=== PATIENT | male | born 1940 | race African-American/Black ===

== ENCOUNTER 2018-05-10 09:02 | Inpatient (IN) | payer MEDICARE ==
[2018-05-10] MEDS ORDERED: ASPIRIN PR ONE (09:22)
[2018-05-10 09:33] LABS: Basophils # (Auto) 0.1 K/mm3 (0.0-0.1); Basophils % (Auto) 0.9 % (0.0-1.8); Eosinophils # (Auto) 0.2 K/mm3 (0.0-0.4); Hematocrit 45.6 % (35.5-45.6); Hemoglobin 15.3 gm/dl (11.8-15.2); Lymphocytes # (Auto) 2.7 K/mm3 (1.2-5.4); Mean Corpuscular HGB Conc 34 % (32-34); Mean Corpuscular Hemoglobin 29 pg (28-32); Mean Corpuscular Volume 86 fl (84-94); Monocytes # (Auto) 0.6 K/mm3 (0.0-0.8); Monocytes % (Auto) 8.7 % (0.0-7.3); Platelet Count 335 K/mm3 (140-440); Red Cell Distribution Width 14.2 % (13.2-15.2)
--- NOTE | 2018-05-10 09:40 | Emergency Department Report ---
ED Chest Pain HPI - General Chief Complaint: Chest Pain Stated Complaint: CHEST PAIN Time Seen by Provider: 05/10/18 09:22 Source: patient, EMS Mode of arrival: Stretcher Limitations: Physical Limitation - History of Present Illness Initial Comments: Patient is 77 years old male with history of hypertension, diabetes and 2 a stroke. Patient presented to the ER complaining of left sided chest pain for the last 2 days. Patient describes pain as pressure radiating to the left upper extremity. Patient denied any shortness of breath, nausea or vomiting. No weakness numbness or tingling sensation. Patient denied any history of coronary artery disease before. MD Complaint: chest pain -: days(s) Onset: during rest Pain Location: left chest Pain Radiation: LUE Severity scale (0 -10): 4 Quality: pressure Consistency: intermittent - Related Data Previous Rx's Medication Instructions Recorded Last Taken Type Metoclopramide [Reglan TAB] 10 mg PO Q6H PRN tablet 09/26/17 Unknown Rx Pitavastatin Calcium [LiVALO] 2 mg PO DAILY #30 tablet 09/26/17 Unknown Rx Acetaminophen [Acetaminophen TAB] 650 mg PO Q4H PRN tablet 10/28/17 Unknown Rx Bisacodyl [Dulcolax suppos] 10 mg TX QDAY PRN supp.rect 10/28/17 Unknown Rx Magnesium Hydroxide [Milk of 30 ml PO Q4H PRN oral.liqd 10/28/17 Unknown Rx Magnesia] Metoprolol [Lopressor TAB] 37.5 mg PO BID #60 tablet 10/28/17 Unknown Rx Pantoprazole [Protonix TAB] 40 mg PO DAILY #30 tablet 10/28/17 Unknown Rx Tamsulosin [Flomax] 0.4 mg PO QDAY #30 capsule 10/28/17 Unknown Rx Aspirin EC [Aspirin Enteric Coated 81 mg PO QDAY #30 tablet.dr 01/08/18 Unknown Rx TAB] Insulin NPH/Regular [NovoLIN 70/30] 10 unit SUB-Q BIDDIAB #7 units 01/08/18 Unknown Rx Levothyroxine [Synthroid] 75 mcg PO DAILY@0600 #30 tablet 01/08/18 Unknown Rx Levothyroxine [Synthroid] 100 mcg PO DAILY@0600 #30 tablet 01/08/18 Unknown Rx Temazepam [Restoril] 15 mg PO QHS PRN #30 capsule 01/08/18 Unknown Rx levoFLOXacin [Levaquin TAB] 500 mg PO Q24HR #5 tablet 01/08/18 Unknown Rx metroNIDAZOLE [Flagyl TAB] 500 mg PO Q8HR #15 tablet 01/08/18 Unknown Rx Allergies Allergy/AdvReac Type Severity Reaction Status Date / Time codeine Allergy Itching Verified 09/20/17 14:14 penicillin Allergy Rash Verified 09/20/17 14:14 aspirin AdvReac Unknown Verified 09/20/17 14:14 Heart Score - HEART Score History: Moderately suspicious EKG: Non-specific Age: > 65 Risk factors: > 3 risk factors or hx of atherosclerotic disease Troponin: < normal limit HEART Score: 6 - Critical Actions Critical Actions: 4-6 pts:12-16.6% risk of adverse cardiac event. Should be admitted ED Review of Systems ROS: Stated complaint: CHEST PAIN Other details as noted in HPI Comment: All other systems reviewed and negative Constitutional: denies: chills, fever Respiratory: denies: cough, orthopnea, shortness of breath, SOB with exertion, SOB at rest Cardiovascular: chest pain. denies: palpitations, dyspnea on exertion Gastrointestinal: denies: abdominal pain, nausea, vomiting, diarrhea, constipation, hematemesis, melena, hematochezia Neurological: denies: headache, weakness, numbness, paresthesias, confusion, abnormal gait ED Past Medical Hx - Past Medical History Hx Hypertension: Yes Hx CVA: Yes (L sided deficits) Hx Diabetes: Yes Hx Asthma: Yes Hx HIV: No Additional medical history: Graves dx. gastric ulcers - Surgical History Additional Surgical History: knee OR bilat. thyroid OR - Social History Smoking Status: Former Smoker Substance Use Type: None - Medications Home Medications: Home Medications Medication Instructions Recorded Confirmed Last Taken Type Metoclopramide [Reglan TAB] 10 mg PO Q6H PRN tablet 09/26/17 01/06/18 Unknown Rx Pitavastatin Calcium [LiVALO] 2 mg PO DAILY #30 tablet 09/26/17 01/06/18 Unknown Rx Acetaminophen [Acetaminophen TAB] 650 mg PO Q4H PRN tablet 10/28/17 01/06/18 Unknown Rx Bisacodyl [Dulcolax suppos] 10 mg TX QDAY PRN supp.rect 10/28/17 01/06/18 Unknown Rx Magnesium Hydroxide [Milk of 30 ml PO Q4H PRN oral.liqd 10/28/17 01/06/18 Unknown Rx Magnesia] Metoprolol [Lopressor TAB] 37.5 mg PO BID #60 tablet 10/28/17 01/06/18 Unknown Rx Pantoprazole [Protonix TAB] 40 mg PO DAILY #30 tablet 10/28/17 01/06/18 Unknown Rx Tamsulosin [Flomax] 0.4 mg PO QDAY #30 capsule 10/28/17 01/06/18 Unknown Rx Aspirin EC [Aspirin Enteric Coated 81 mg PO QDAY #30 tablet.dr 01/08/18 Unknown Rx TAB] Insulin NPH/Regular [NovoLIN 70/30] 10 unit SUB-Q BIDDIAB #7 units 01/08/18 Unknown Rx Levothyroxine [Synthroid] 75 mcg PO DAILY@0600 #30 tablet 01/08/18 Unknown Rx Levothyroxine [Synthroid] 100 mcg PO DAILY@0600 #30 tablet 01/08/18 Unknown Rx Temazepam [Restoril] 15 mg PO QHS PRN #30 capsule 01/08/18 Unknown Rx levoFLOXacin [Levaquin TAB] 500 mg PO Q24HR #5 tablet 01/08/18 Unknown Rx metroNIDAZOLE [Flagyl TAB] 500 mg PO Q8HR #15 tablet 01/08/18 Unknown Rx ED Physical Exam - General Limitations: No Limitations, Physical Limitation General appearance: alert, in no apparent distress - Head Head exam: Present: atraumatic, normocephalic, normal inspection - Eye Eye exam: Present: normal appearance, PERRL - ENT ENT exam: Present: normal exam, normal orophraynx, mucous membranes moist - Neck Neck exam: Present: normal inspection, full ROM. Absent: tenderness, meningismus, lymphadenopathy, thyromegaly - Respiratory Respiratory exam: Present: normal lung sounds bilaterally. Absent: respiratory distress, wheezes, rales, rhonchi, stridor, chest wall tenderness, accessory muscle use, decreased breath sounds, prolonged expiratory - Cardiovascular Cardiovascular Exam: Present: regular rate, normal rhythm, normal heart sounds - GI/Abdominal GI/Abdominal exam: Present: soft, normal bowel sounds. Absent: distended, tenderness, guarding, rebound, rigid, organomegaly, mass, bruit, pulsatile mass , hernia - Extremities Exam Extremities exam: Present: normal inspection, full ROM, normal capillary refill. Absent: tenderness, pedal edema, joint swelling, calf tenderness - Back Exam Back exam: Present: normal inspection, full ROM. Absent: tenderness, CVA tenderness (R), CVA tenderness (L), muscle spasm, paraspinal tenderness, vertebral tenderness, rash noted - Neurological Exam Neurological exam: Present: alert, oriented X3, CN II-XII intact, normal gait, reflexes normal - Skin Skin exam: Present: warm, intact, normal color ED Course Vital Signs 05/10/18 09:13 Temperature 98.7 F Pulse Rate 65 Respiratory 14 Rate Blood Pressure 156/73 Blood Pressure 156/73 [Right] O2 Sat by Pulse 94 Oximetry - Reevaluation(s) Reevaluation #1: 05/10/18 11:17 * Patient family and from the nurse and that patient is having swelling. Patient examined by me there is no evidence of swelling and patient denied any difficulty breathing or swallowing. Patient is on lisinopril for years advised to stop the lisinopril to give the patient Solu-Medrol 125 and Benadryl 25 mg and Pepcid 20 mg. Patient will be admitted to telemetry ED Medical Decision Making - Lab Data Result diagrams: 05/10/18 09:28 05/10/18 09:28 - EKG Data -: EKG Interpreted by Me EKG shows normal: sinus rhythm Rate: normal - EKG Data Interpretation: no acute changes - Radiology Data Radiology results: report reviewed - Medical Decision Making I discussed the patient is , he agreed to admit the patient to medical service. Critical care attestation.: If time is entered above; I have spent that time in minutes in the direct care of this critically ill patient, excluding procedure time. ED Disposition Clinical Impression: Chest pain Disposition: OP ADMIT IP TO THIS HOSP Is pt being admited?: Yes Condition: Stable Instructions: Chest Pain (ED) Referrals: PRIMARY CARE, [Primary Care Provider] - 3-5 Days
[2018-05-10 09:46] LABS: BUN/Creatinine Ratio 14; Blood Urea Nitrogen 10 mg/dL (9-20); Hemolysis Index 17
--- NOTE | 2018-05-10 10:12 | XRay Report ---
AP CHEST: HISTORY: chest pain AP view of the chest demonstrates a normal mediastinal and cardiac contour with clear lungs and normal bony and soft tissue structures. IMPRESSION: Unremarkable AP chest. No change since 10/26/17.
--- NOTE | 2018-05-10 10:55 | History and Physical Report ---
History of Present Illness Date of examination: 05/10/18 Date of admission: 05/10/18 Chief complaint: Chest pain History of present illness: Patient is 77 years old male with history of hypertension, diabetes and 2 a stroke. Patient presented to the ER complaining of left sided chest pain for the last 2 days. Patient describes pain as pressure radiating to the left upper extremity. Patient denied any shortness of breath, nausea or vomiting. No weakness numbness or tingling sensation. Patient denied any history of coronary artery disease before. Past History Past Medical History: diabetes, GERD, hypertension Past Surgical History: thyroidectomy, total knee replacement Social history: single Family history: no significant family history (reviewed) Medications and Allergies Allergies Allergy/AdvReac Type Severity Reaction Status Date / Time codeine Allergy Itching Verified 09/20/17 14:14 penicillin Allergy Rash Verified 09/20/17 14:14 aspirin AdvReac Unknown Verified 09/20/17 14:14 Home Medications Medication Instructions Recorded Confirmed Last Taken Type Metoprolol [Lopressor TAB] 37.5 mg PO BID #60 tablet 10/28/17 05/10/18 05/10/18 Rx Ezetimibe [Zetia] 10 mg PO QDAY 05/10/18 05/10/18 Unknown History Levothyroxine Sodium [Synthroid] 175 mcg PO QDAY 05/10/18 05/10/18 Unknown History Lisinopril [Zestril] 40 mg PO QDAY 05/10/18 05/10/18 05/10/18 History Exam - Physical Exam Narrative exam: Hospitalist Physical exam: GENERAL: well-developed and well-nourished male lying on bed appeared to be in no discomfort. HEENT: Normocephalic. Atraumatic. No conjunctival congestion or icterus. Patient has moist mucous membranes. NECK: Supple. Trachea midline. CHEST/LUNGS: Clear to auscultated bilaterally, breathing nonlabored. No wheezes crackles or rhonchi. HEART/CARDIOVASCULAR: Regular in rate and rhythm. S1 and S2 positive. ABDOMEN: Abdomen is soft, LLQ tender. Patient has normal bowel sounds. SKIN: There is no rash. Warm and dry. NEURO: leftsided weakness. Follows command. MUSCULOSKELETAL: No joint effusion or tenderness. EXTRIMITY: No edema, no cyanosis or clubbing. PSYCH: Cooperative. - Constitutional Vitals: Temp Pulse Resp BP Pulse Ox 98.7 F 65 14 156/73 96 05/10/18 09:13 05/10/18 09:13 05/10/18 09:13 05/10/18 09:13 05/10/18 09:13 Results - Labs CBC & Chem 7: 05/10/18 09:28 05/10/18 09:28 Labs: Abnormal lab results 05/10/18 05/10/18 05/10/18 Range/Units 09:28 09:28 09:28 RBC 5.30 H (3.65-5.03) M/mm3 Hgb 15.3 H (11.8-15.2) gm/dl Lymph % (Auto) 39.0 H (13.4-35.0) % [place] % (Auto) 8.7 H (0.0-7.3) % Sodium 136 L (137-145) mmol/L Chloride 97.9 L (98-107) mmol/L Creatinine 0.7 L (0.8-1.5) mg/dL Glucose 133 H (75-100) mg/dL Lipase 85 H (13-60) units/L Assessment and Plan /Chest pain, unstable angina? 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
[2018-05-10] MEDS ORDERED: SOLU-Medrol IV ONE (11:08)
[2018-05-10] MEDS ORDERED: PEPCID IV ONE (11:08)
[2018-05-10] MEDS ORDERED: BENADRYL IV ONE (11:08)
[2018-05-10] MEDS ORDERED: NITROSTAT SL ONE (11:18)
[2018-05-10] MEDS ORDERED: REGLAN PO PRN (12:00)
[2018-05-10] MEDS ORDERED: MORPHINE IV ONE (18:00)
[2018-05-10 22:23] LABS: Creatine Kinase MB < 1.0 ng/mL (0.0-4.0)
[2018-05-10] MEDS: LOPRESSOR PO SCH (22:26)
[2018-05-10] MEDS: RESTORIL PO PRN (22:29)
[2018-05-11] MEDS: SYNTHROID PO SCH (05:48)
[2018-05-11] MEDS ORDERED: SYNTHROID PO SCH (06:00)
[2018-05-11] MEDS: LOPRESSOR PO SCH ×2 (09:13→22:58)
[2018-05-11] MEDS: HALFPRIN EC PO SCH (09:14)
[2018-05-11] MEDS: FLOMAX PO SCH (09:14)
[2018-05-11] MEDS: PROTONIX PO SCH (09:14)
[2018-05-11] MEDS ORDERED: PITAVASTATIN CALCIUM 2 MG PO SCH (10:00)
--- NOTE | 2018-05-11 11:45 | Nuclear Medicine Report ---
Ventilation/perfusion lung scan: Elevated d-dimer/chest pain. The ventilation imaging is somewhat limited. There is a relatively unremarkable distribution of radionuclide on the initial images. Equilibrium images however are inadequate and there is no obvious retention on the delayed images. The perfusion images with multiple projections demonstrates a homogeneous and unremarkable distribution of radioactivity in both lungs. Impressions: Limited ventilation imaging with normal perfusion images. No pulmonary embolus suspected.
--- NOTE | 2018-05-11 13:08 | Progress Note ---
Assessment and Plan /Chest pain, unstable angina? 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 No pulmonary embolus suspected. Subjective Date of service: 05/11/18 Interval history: Pt seen and examined C/o intermittent chest pain Objective - Exam Narrative Exam: Hospitalist Physical exam: GENERAL: well-developed and well-nourished male lying on bed appeared to be in no discomfort. HEENT: Normocephalic. Atraumatic. No conjunctival congestion or icterus. Patient has moist mucous membranes. NECK: Supple. Trachea midline. CHEST/LUNGS: Clear to auscultated bilaterally, breathing nonlabored. No wheezes crackles or rhonchi. HEART/CARDIOVASCULAR: Regular in rate and rhythm. S1 and S2 positive. ABDOMEN: Abdomen is soft, LLQ tender. Patient has normal bowel sounds. SKIN: There is no rash. Warm and dry. NEURO: leftsided weakness. Follows command. MUSCULOSKELETAL: No joint effusion or tenderness. EXTRIMITY: No edema, no cyanosis or clubbing. PSYCH: Cooperative. - Constitutional Vitals: Vital Signs - 12hr 05/11/18 05/11/18 05/11/18 05:35 08:13 09:13 Temperature 97.5 F L Pulse Rate 72 80 80 Pulse Rate [ From Monitor] Respiratory 20 Rate Respiratory Rate [Hip] Blood Pressure 140/74 Blood Pressure 143/78 [Right] O2 Sat by Pulse 96 Oximetry 05/11/18 10:00 Temperature Pulse Rate Pulse Rate [ 90 From Monitor] Respiratory 20 Rate Respiratory 20 Rate [Hip] Blood Pressure Blood Pressure [Right] O2 Sat by Pulse Oximetry - Labs CBC & Chem 7: 05/10/18 09:28 05/10/18 09:28 Labs: Abnormal lab results 05/10/18 05/10/18 05/11/18 Range/Units 20:58 20:58 12:11 D-Dimer 379.9 H (0-234) ng/mlDDU POC Glucose 167 H (70-105) Total Creatine Kinase 36 L (55-170) units/L
[2018-05-11] MEDS: PERCOCET 5/325 PO PRN (15:16)
[2018-05-11] MEDS: PRAVACHOL PO SCH (22:59)
[2018-05-11] MEDS: RESTORIL PO PRN (23:47)
[2018-05-12] MEDS: SYNTHROID PO SCH (06:55)
[2018-05-12] MEDS: PROTONIX PO SCH (10:02)
[2018-05-12] MEDS: FLOMAX PO SCH (10:03)
[2018-05-12] MEDS: HALFPRIN EC PO SCH (10:03)
[2018-05-12] MEDS: LOPRESSOR PO SCH ×2 (10:04→21:35)
--- NOTE | 2018-05-12 15:13 | Progress Note ---
Assessment and Plan Assessment and plan: 77-year-old male with past medical history significant for hypertension, hypothyroidism, diabetes mellitus presented to the emergency department with complaints of chest pain. In the ED VQ scan was done and no probability for PE. Chest pain - Cardiac enzymes were negative - Couldn't do this today because of the VQ scan, will have stress test tomorrow Diabetes mellitus - Continue insulin Hypertension - Continue antihypertensives Hypothyroidism - Continue levothyroxine DVT prophylaxis - On heparin Disposition - Possibly tomorrow if stress test is negative. History Interval history: Patient was seen and evaluated this morning, patient said he didn't have any chest pain today. Hospitalist Physical - Physical exam Narrative exam: Not in cardiopulmonary distress. The patient appeared well nourished and normally developed. Vital signs as documented. Head exam is unremarkable. No scleral icterus . Neck is without jugular venous distension, thyromegaly, or carotid bruits. Lungs are clear to auscultation. Cardiac exam reveals regular rate and Rhythm. First and second heart sounds normal. No murmurs, rubs or gallops. Abdominal exam reveals normal bowel sounds, no masses, no organomegaly and no aortic enlargement. Extremities are nonedematous and both femoral and pedal pulses are normal. 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 No focal weakness. - Constitutional Vitals: Temp Pulse Resp BP Pulse Ox 98.1 F 78 20 164/80 96 05/12/18 05:01 05/12/18 10:04 05/12/18 10:00 05/12/18 10:04 05/12/18 10:00 Results - Labs CBC & Chem 7: 05/10/18 09:28 05/10/18 09:28 Labs: Laboratory Last Values WBC 7.0 K/mm3 (4.5-11.0) 05/10/18 09:28 RBC 5.30 M/mm3 (3.65-5.03) H 05/10/18 09:28 Hgb 15.3 gm/dl (11.8-15.2) H 05/10/18 09:28 Hct 45.6 % (35.5-45.6) 05/10/18 09:28 MCV 86 fl (84-94) 05/10/18 09:28 MCH 29 pg (28-32) 05/10/18 09:28 MCHC 34 % (32-34) 05/10/18 09:28 RDW 14.2 % (13.2-15.2) 05/10/18 09:28 Plt Count 335 K/mm3 (140-440) 05/10/18 09:28 Lymph % (Auto) 39.0 % (13.4-35.0) H 05/10/18 09:28 [place] % (Auto) 8.7 % (0.0-7.3) H 05/10/18 09:28 Eos % (Auto) 3.0 % (0.0-4.3) 05/10/18 09:28 Baso % (Auto) 0.9 % (0.0-1.8) 05/10/18 09:28 Lymph # 2.7 K/mm3 (1.2-5.4) 05/10/18 09:28 [place] # 0.6 K/mm3 (0.0-0.8) 05/10/18 09: Eos # 0.2 K/mm3 (0.0-0.4) 05/10/18 09:28 Baso # 0.1 K/mm3 (0.0-0.1) 05/10/18 09:28 Seg Neutrophils % 48.4 % (40.0-70.0) 05/10/18 09: Seg Neutrophils # 3.4 K/mm3 (1.8-7.7) 05/10/18 09:28 D-Dimer 379.9 ng/mlDDU (0-234) H 05/10/18 20:58 Sodium 136 mmol/L (137-145) L 05/10/18 09:28 Potassium 4.1 mmol/L (3.6-5.0) 05/10/18 09:28 Chloride 97.9 mmol/L (98-107) L 05/10/18 09:28 Carbon Dioxide 26 mmol/L (22-30) 05/10/18 09:28 Anion Gap 16 mmol/L 05/10/18 09:28 BUN 10 mg/dL (9-20) 05/10/18 09:28 Creatinine 0.7 mg/dL (0.8-1.5) L 05/10/18 09:28 Estimated GFR > 60 ml/min 05/10/18 09:28 BUN/Creatinine Ratio 14 % 05/10/18 09:28 Glucose 133 mg/dL (75-100) H 05/10/18 09:28 POC Glucose 211 (70-105) H 05/12/18 11:23 Calcium 9.0 mg/dL (8.4-10.2) 05/10/18 09:28 Total Creatine Kinase 36 units/L (55-170) L 05/10/18 20:58 CK-MB (CK-2) < 1.0 ng/mL (0.0-4.0) 05/10/18 20:58 CK-MB (CK-2) Rel Index 2.7 (0-4) 05/10/18 20:58 Troponin T < 0.010 ng/mL (0.00-0.029) 05/10/18 20:58 NT-Pro-B Natriuret Pep 89.52 pg/mL (0-900) 05/10/18 09:28 Lipase 21 units/L (13-60) 05/11/18 05:45
[2018-05-12] MEDS: RESTORIL PO PRN (21:34)
[2018-05-12] MEDS: PRAVACHOL PO SCH (21:34)
[2018-05-12] MEDS: HEPARIN SUB-Q SCH (21:37)
[2018-05-13] MEDS: SYNTHROID PO SCH (06:28)
[2018-05-13] MEDS ORDERED: LEXISCAN IV ONE ×2 (08:12→08:14)
[2018-05-13] MEDS: LOPRESSOR PO SCH ×2 (12:11→22:48)
[2018-05-13] MEDS: PROTONIX PO SCH (12:11)
[2018-05-13] MEDS: FLOMAX PO SCH (12:11)
[2018-05-13] MEDS: HALFPRIN EC PO SCH (12:12)
[2018-05-13] MEDS: HEPARIN SUB-Q SCH ×2 (12:12→22:48)
--- NOTE | 2018-05-13 13:22 | Treadmill Report ---
MYOCARDIAL PERFUSION IMAGING STUDY Resting images revealed homogeneous radioisotope activity throughout myocardium. There was slightly increased gut uptake noted. On post-Lexiscan images, again there was homogeneous radioisotope activity noted throughout the myocardium. There was a transient ischemic dilatation of 1.27. Ejection fraction was normal at 65% on gated stress scan. IMPRESSION: This test is negative for ischemia. There is no segmental motion abnormalities noted. Preserved ejection fraction. However, there was transient ischemic dilatation. The significance of which is not well known. It may be seen in triple vessel disease or could be normal variant. Clinical correlation and recommendation is suggested. JOB# [id number] MARLA/FRANCISCO
--- NOTE | 2018-05-13 13:49 | Event Note ---
Date: 05/13/18 Cardiac consult dictated. TID on MPI. Schedule for cardiac catheterization. DrK. [place].
--- NOTE | 2018-05-13 14:02 | Progress Note ---
Assessment and Plan Assessment and plan: 77-year-old male with past medical history significant for hypertension, hypothyroidism, diabetes mellitus presented to the emergency department with complaints of chest pain. In the ED VQ scan was done and no probability for PE. Chest pain - Cardiac enzymes were negative - Couldn't do this today because of the VQ scan - Stress test was done and showed transient ischemic dilation, given his chest pressure and stress test patient will have cardiac cath. - Cardiology consulted Diabetes mellitus - Continue insulin Hypertension - Continue antihypertensives Hypothyroidism - Continue levothyroxine DVT prophylaxis - On heparin Disposition - Possibly tomorrow if stress test is negative. History Interval history: Patient was seen and evaluated this morning, patient said he didn't have any chest pain today but said he has some chest pressure. Hospitalist Physical - Physical exam Narrative exam: Not in cardiopulmonary distress. The patient appeared well nourished and normally developed. Vital signs as documented. Head exam is unremarkable. No scleral icterus . Neck is without jugular venous distension, thyromegaly, or carotid bruits. Lungs are clear to auscultation. Cardiac exam reveals regular rate and Rhythm. First and second heart sounds normal. No murmurs, rubs or gallops. Abdominal exam reveals normal bowel sounds, no masses, no organomegaly and no aortic enlargement. Extremities are nonedematous and both femoral and pedal pulses are normal. 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 No focal weakness. - Constitutional Vitals: Temp Pulse Resp BP Pulse Ox 97.6 F 78 18 165/87 94 05/13/18 05:51 05/13/18 09:43 05/13/18 05:51 05/13/18 09:43 05/13/18 05:51 Results - Labs CBC & Chem 7: 05/10/18 09:28 05/10/18 09:28 Labs: Laboratory Last Values WBC 7.0 K/mm3 (4.5-11.0) 05/10/18 09:28 RBC 5.30 M/mm3 (3.65-5.03) H 05/10/18 09:28 Hgb 15.3 gm/dl (11.8-15.2) H 05/10/18 09:28 Hct 45.6 % (35.5-45.6) 05/10/18 09:28 MCV 86 fl (84-94) 05/10/18 09:28 MCH 29 pg (28-32) 05/10/18 09:28 MCHC 34 % (32-34) 05/10/18 09:28 RDW 14.2 % (13.2-15.2) 05/10/18 09:28 Plt Count 335 K/mm3 (140-440) 05/10/18 09:28 Lymph % (Auto) 39.0 % (13.4-35.0) H 05/10/18 09:28 [place] % (Auto) 8.7 % (0.0-7.3) H 05/10/18 09:28 Eos % (Auto) 3.0 % (0.0-4.3) 05/10/18 09: Baso % (Auto) 0.9 % (0.0-1.8) 05/10/18 09:28 Lymph # 2.7 K/mm3 (1.2-5.4) 05/10/18 09: [place] # 0.6 K/mm3 (0.0-0.8) 05/10/18 09:28 Eos # 0.2 K/mm3 (0.0-0.4) 05/10/18 09:28 Baso # 0.1 K/mm3 (0.0-0.1) 05/10/18 09:28 Seg Neutrophils % 48.4 % (40.0-70.0) 05/10/18 09: Seg Neutrophils # 3.4 K/mm3 (1.8-7.7) 05/10/18 09:28 D-Dimer 379.9 ng/mlDDU (0-234) H 05/10/18 20:58 Sodium 136 mmol/L (137-145) L 05/10/18 09:28 Potassium 4.1 mmol/L (3.6-5.0) 05/10/18 09:28 Chloride 97.9 mmol/L (98-107) L 05/10/18 09:28 Carbon Dioxide 26 mmol/L (22-30) 05/10/18 09:28 Anion Gap 16 mmol/L 05/10/18 09:28 BUN 10 mg/dL (9-20) 05/10/18 09:28 Creatinine 0.7 mg/dL (0.8-1.5) L 05/10/18 09:28 Estimated GFR > 60 ml/min 05/10/18 09:28 BUN/Creatinine Ratio 14 % 05/10/18 09:28 Glucose 133 mg/dL (75-100) H 05/10/18 09:28 POC Glucose 234 (70-105) H 05/13/18 11:40 Calcium 9.0 mg/dL (8.4-10.2) 05/10/18 09:28 Total Creatine Kinase 36 units/L (55-170) L 05/10/18 20:58 CK-MB (CK-2) < 1.0 ng/mL (0.0-4.0) 05/10/18 20:58 CK-MB (CK-2) Rel Index 2.7 (0-4) 05/10/18 20:58 Troponin T < 0.010 ng/mL (0.00-0.029) 05/10/18 20:58 NT-Pro-B Natriuret Pep 89.52 pg/mL (0-900) 05/10/18 09:28 Lipase 21 units/L (13-60) 05/11/18 05:45
[2018-05-13] MEDS: PERCOCET 5/325 PO PRN (18:27)
[2018-05-13] MEDS: PRAVACHOL PO SCH (22:48)
[2018-05-13] MEDS: RESTORIL PO PRN (22:48)
--- NOTE | 2018-05-13 22:57 | Consultation ---
REQUESTING PHYSICIAN: Kirill Bennett M.D. REASON FOR CONSULTATION: Abnormal stress test. HISTORY OF PRESENT ILLNESS: This 77-year-old patient has a history of diabetes mellitus since 1978 along with hypertension and hyperlipidemia. About 6 years ago, he was told to have a coronary artery angiogram at [facility], but this was not done because of insurance conflicts. The patient has a history of GI bleeding about 8 years ago, admitted to [facility], getting about 5 units of packed red blood cells, an endoscope and proton pump inhibitors. Since then, he has been told not to take aspirin. The patient was admitted in September with a left-sided stroke and again recurrence of the stroke in October. He was discharged home on statins, beta blockers, and Plavix, and not aspirin to the rehab center. He was there for about a month and he was discharged home without Plavix or aspirin. The patient came in with a precordial pressure type of pain without any radiation to the left side, but radiation to the right shoulder. It lasted half an hour each time. This has been going on for last 1 week. When he came in, his D-dimer was elevated and therefore he had a CT of the chest on Monday and that was on 05/12/2018, and this was negative. Therefore, he was scheduled to have myocardial perfusion imaging studies today, and that is on 05/13/2018. This revealed transient ischemic dilatation of 1.27 without any perfusion abnormalities. Because of risk factors and chest pain along with an abnormal stress test, the patient was given a choice of coronary arteriogram to find out any disease he has that needs treatment. SOCIAL HISTORY: The patient smoked 2-1/2 packs of cigarettes per day until 10 years ago. He is not . He has no children. MEDICATIONS: At home include Reglan 10 mg p.r.n., pitavastatin 2 mg once a day, metoprolol 37.5 mg twice a day, Protonix 40 mg once a day, Flomax 0.4 mg once a day, insulin, Synthroid 75 mcg. He had a subtotal thyroidectomy 20 years ago for hyperthyroidism. He takes another tablet of Synthroid 100 mcg, Restoril 50 mg at bedtime. ALLERGIES: CODEINE, PENICILLIN. ASPIRIN is listed as an allergy, but it is due to gastric ulcers and he was told not to take it. REVIEW OF SYSTEMS: As per the history of present illness. PHYSICAL EXAMINATION: VITAL SIGNS: BMI is 24.4, blood pressure 150/60, pulse 70 per minute. NECK: No bruits noted in the neck. No JVD elevation. HEART: PMI is not palpable. Heart sounds heard well. S4 is noted. No murmurs. LUNGS: Clear. ABDOMEN: Soft. Liver is not palpable. Bowel sounds are active. EXTREMITIES: No edema. Good pulses. He has evidence of left hemiparesis. DICTATION ENDS HERE. JOB# [id number] KR/NTS
[2018-05-14] MEDS: SYNTHROID PO SCH (05:21)
[2018-05-14 06:14] LABS: BUN/Creatinine Ratio 18; Blood Urea Nitrogen 14 mg/dL (9-20); Calcium 9.3 mg/dL (8.4-10.2); Hemolysis Index 30; INR 0.94 (0.87-1.13); Partial Thromboplastin Time 28.8 Sec. (24.2-36.6)
[2018-05-14] MEDS ORDERED: VERSED ONE (08:17)
[2018-05-14] MEDS ORDERED: HEPARIN/NS 5000 UNIT/500ML(CATH LAB) 1,000 ML IR ONE (08:17)
[2018-05-14] MEDS ORDERED: HEPARIN 10,000 UNITS/10 ML ONE (08:17)
[2018-05-14] MEDS ORDERED: XYLOCAINE 2% INFILTRATI ONE (08:18)
[2018-05-14] MEDS ORDERED: NITROGLYCERIN SYRINGE 0 ML ONE (08:18)
[2018-05-14] MEDS ORDERED: CALAN ONE (08:18)
[2018-05-14] MEDS ORDERED: SUBLIMAZE ONE (08:18)
[2018-05-14] MEDS ORDERED: BENADRYL IV NR (08:30)
[2018-05-14] MEDS ORDERED: HALFPRIN EC PO ONE (08:37)
[2018-05-14] MEDS ORDERED: NACL 0.9% 500 ML 500 ML ONE (08:40)
[2018-05-14] MEDS: HALFPRIN EC PO SCH ×2 (08:46→12:00)
[2018-05-14] MEDS ORDERED: SOLU-Medrol IV NR (09:00)
[2018-05-14] MEDS ORDERED: PEPCID IV NR (09:00)
[2018-05-14] MEDS: KCL 10MEQ/100ML 10 MEQ/100 ML BAG IV SCH ×4 (09:20→13:00)
--- NOTE | 2018-05-14 10:37 | Cardiac Catherization Report ---
INDICATION FOR PROCEDURE: A 77-year-old gentleman with history of diabetes mellitus, admitted with chest pain and Lexiscan nuclear imaging showed transient ischemic dilation with no perfusion abnormalities. Because of this the patient is scheduled for cardiac catheterization and definitive diagnosis. The patient is aware of the procedure, potential complications and alternatives of therapy available. DESCRIPTION OF PROCEDURE: The patient was brought to the catheterization laboratory in a fasting condition. Right wrist area and forearm thoroughly cleansed with Betadine solution. The patient was evaluated for moderate sedation and when he was felt appropriate he received IV Versed and fentanyl. Subsequently, using multipurpose catheter left ventriculogram was performed in MACIAS projection using hand injection. Subsequently, using the multipurpose catheter, left coronary angiograms were obtained in multiple views. Subsequently, JR4 catheter was used to obtain angiograms of the right coronary artery. At the end of the procedure, catheter and sheath were removed. It is to be noted the patient was monitored for moderate sedation throughout the procedure with EKG, hemodynamic monitoring and pulse oximetry. The patient's monitoring stopped at 9:41 a.m. The patient tolerated the procedure well. No untoward complications were noted. Hemostasis was achieved with radial band. Following findings were noted. HEMODYNAMICS: 1. Opening aortic pressure 148/66, left ventricular pressure 139/10. No gradient across the aortic valve. Estimated ejection fraction 65%. 2. Left ventriculogram done in MACIAS projection showed normal size left ventricle with normal contractility. End-diastolic and systolic volumes are normal. Mitral regurgitation could not be evaluated. 3. Right coronary artery is a nondominant artery arises normally from right coronary cusp, angiographically smooth and normal. 4. Left coronary artery arises normally from left coronary cusp. There is moderate to severe calcification noted in the left main, LAD area. Left main is very short, immediately dividing the LAD and circumflex branches. LAD has a very tight more than 95% lesion at the ostium. Distal LAD is filling fairly well; however, filling is not complete. Mid diagonal has a 70% smooth lesion. Circumflex artery dominant vessel shows 50-60% smooth lesion in the very distal OM branch. Otherwise, no significant disease. Collaterals none. FINAL IMPRESSION: 1.Normal sized left ventricle with normal contractility. 2.Calcified left main and LAD with severe ostial LAD lesion with moderate 70% mid diagonal lesion and distal OM has 50% smooth lesion. At this time, considering the above angiographic pictures along with severe calcification it was felt the patient would benefit from left internal mammary graft to the LAD robotically. We will discuss with cardiothoracic surgeon. We will arrange for the transfer. Discussed with the patient and family. They understand. No untoward complications were noted. JOB# [id number] KYLAH/NTS
--- NOTE | 2018-05-14 11:05 | Discharge Summary ---
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 In the ED VQ scan was done and low probability for PE. Chest pain - Cardiac enzymes were negative - Stress test was done and showed transient ischemic dilation, given his continued chest pressure and indeterminate stress test [facility] thiswas done which showed calcified left main and LAD with severe ostial LAD lesion. Pt transferred to [place] for further evaluation and management. Diabetes mellitus; treated with insulin Hypertension; continued his home medications Hypothyroidism, Continued levothyroxine Patient was transferred to [place], have discussed the finding and management plan with the patient and son who are in agreement with the plan. Cardiology arranged the transfer and patient transferred to [place]. Disposition: [id number]/[id number] [facility] IP Time spent for discharge: 34 minutes - Discharge Diagnoses (1) CAD (coronary artery disease) Status: Acute (2) Chest pain Status: Acute (3) Accelerated hypertension Status: Acute (4) History of CVA with residual deficit Status: Acute Core Measure Documentation - Palliative Care Palliative Care/ Comfort Measures: Not Applicable - Core Measures Any of the following diagnoses?: none (Patient has acute MT but patient transferred to another facility.), history only (stroke) Exam - Physical Exam Narrative exam: Not in cardiopulmonary distress. The patient appeared well nourished and normally developed. Vital signs as documented. Head exam is unremarkable. No scleral icterus . Neck is without jugular venous distension, thyromegaly, or carotid bruits. Lungs are clear to auscultation. Cardiac exam reveals regular rate and Rhythm. First and second heart sounds normal. No murmurs, rubs or gallops. Abdominal exam reveals normal bowel sounds, no masses, no organomegaly and no aortic enlargement. Extremities are nonedematous and both femoral and pedal pulses are normal. 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 No focal weakness. - Constitutional Vitals: Temp Pulse Resp BP Pulse Ox 97.9 F 66 18 137/71 93 05/14/18 04:58 05/14/18 04:58 05/14/18 04:58 05/14/18 04:58 05/14/18 04:58 Plan Activity: no restrictions Weight Bearing Status: Full Weight Bearing Diet: low cholesterol, low salt, diabetic Follow up with: PRIMARY CARE, [Primary Care Provider] - 7 Days
[2018-05-14] MEDS: FLOMAX PO SCH (11:59)
[2018-05-14] MEDS: HEPARIN SUB-Q SCH ×2 (12:01→22:29)
[2018-05-14] MEDS: LOPRESSOR PO SCH ×2 (12:01→22:29)
[2018-05-14] MEDS: PROTONIX PO SCH (12:02)
--- NOTE | 2018-05-14 12:46 | Progress Note ---
Assessment and Plan S/p [facility] this AM which showed calcified left main and LAD with severe ostial LAD lesion. Pt to be transferred to [place] for further evaluation and management. The patient has been seen in conjunction with Dr. Garrido who agrees with the assessment and plan of care. - Patient Problems (1) Chest pain Current Visit: Yes Status: Acute (2) CAD (coronary artery disease) Current Visit: Yes Status: Acute (3) HTN (hypertension) Current Visit: Yes Status: Chronic (4) Diabetes Current Visit: Yes Status: Chronic Qualifiers: Diabetes mellitus type: type 1 Diabetes mellitus complication status: with neurologic complications Subjective Date of service: 05/14/18 Principal diagnosis: chest pain Interval history: pt seen s/p [facility]. no current cardiac complaints. Objective Last Vital Signs Temp 97.9 F 05/14/18 04:58 Pulse 66 05/14/18 04:58 Resp 18 05/14/18 04:58 BP 137/71 05/14/18 04:58 Pulse Ox 93 05/14/18 04:58 - Physical Examination General: No Apparent Distress HEENT: Positive: PERRL, Normocephaly, Mucus Membranes Moist Neck: Positive: neck supple, trachea midline Cardiac: Positive: Reg Rate and Rhythm, S1/S2 Lungs: Positive: clear to auscultation Neuro: Positive: Grossly Intact Abdomen: Positive: Soft. Negative: Tender Skin: Negative: Rash, Wound Musculoskeletal: No Fluid Collection, No Pain, Normal Range of Motion Extremities: Absent: edema - Labs and Meds Coagulation 05/14/18 Range/Units 05:16 PT 13.1 (12.2-14.9) Sec. INR 0.94 (0.87-1.13) APTT 28.8 (24.2-36.6) Sec. Comprehensive Metabolic Panel 05/14/18 Range/Units 05:16 Sodium 135 L (137-145) mmol/L Potassium 3.3 L (3.6-5.0) mmol/L Chloride 95.8 L (98-107) mmol/L Carbon Dioxide 23 (22-30) mmol/L BUN 14 (9-20) mg/dL Creatinine 0.8 (0.8-1.5) mg/dL Glucose 110 H (75-100) mg/dL Calcium 9.3 (8.4-10.2) mg/dL - Imaging and Cardiology Cardiac cath: report reviewed - Telemetry EKG Rhythm: Sinus Rhythm
[2018-05-14] MEDS ORDERED: K-DUR PO NR (14:30)
[2018-05-14] MEDS: PRAVACHOL PO SCH (22:29)
[2018-05-15 01:38] VITALS: BP 137/76
== END 2018-05-15 02:05 | disposition short-term general hospital (02) | DRG 287 ==
LOC: ED 09:02 → 4A 10:37
PROVIDERS: ADMIT Hospitalist; ATTEND Internal Medicine
PROC: 4A023N7 Measurement of Cardiac Sampling and Pressure, Left Heart, Percutaneous Approach (ICD-10-PCS; principal; 2018-05-14)
PROC: B211YZZ Fluoroscopy of Multiple Coronary Arteries using Other Contrast (ICD-10-PCS; 2018-05-14)
PROC: B215YZZ Fluoroscopy of Left Heart using Other Contrast (ICD-10-PCS; 2018-05-14)
DX: I25.10 Atherosclerotic heart disease of native coronary artery without angina pectoris (principal); I69.354 Hemiplegia and hemiparesis following cerebral infarction affecting left non-dominant side; I10 Essential (primary) hypertension; E10.9 Type 1 diabetes mellitus without complications; G47.00 Insomnia, unspecified; J45.909 Unspecified asthma, uncomplicated; K21.9 Gastro-esophageal reflux disease without esophagitis; E89.0 Postprocedural hypothyroidism; Z96.659 Presence of unspecified artificial knee joint; Z88.5 Allergy status to narcotic agent; Z88.0 Allergy status to penicillin; Z88.6 Allergy status to analgesic agent; Z79.899 Other long term (current) drug therapy
CPT/HCPCS: 36415; 71045; 78452; 78582; 80048; 82550; 82553; 82962; 83690; 83880; 84484; 85025; 85379; 85610; 85730; 86850; 86900; 86901; 93005; 93010; 93017; 93458; 96374; 96375; A9270-GY; A9502; A9540; A9558; C1894; J1200; J1644; J1815; J2250; J2270; J2785; J2930; J3010; J3480; J7040; Q9967

== ENCOUNTER 2018-06-14 17:43 | Emergency (ER) | payer MEDICARE ==
[2018-06-14 18:31] LABS: Basophils # (Auto) 0.1 K/mm3 (0.0-0.1); Basophils % (Auto) 0.7 % (0.0-1.8); Eosinophils # (Auto) 0.4 K/mm3 (0.0-0.4); Eosinophils % (Auto) 3.9 % (0.0-4.3); Hemoglobin 12.9 gm/dl (11.8-15.2); Lymphocytes % (Auto) 32.1 % (13.4-35.0); Mean Corpuscular HGB Conc 34 % (32-34); Mean Corpuscular Hemoglobin 29 pg (28-32); Mean Corpuscular Volume 84 fl (84-94); Monocytes % (Auto) 10.7 % (0.0-7.3); Platelet Count 401 K/mm3 (140-440); Red Blood Count 4.51 M/mm3 (3.65-5.03); Red Cell Distribution Width 13.5 % (13.2-15.2)
[2018-06-14 18:43] LABS: INR 0.93 (0.87-1.13)
[2018-06-14 18:44] LABS: Partial Thromboplastin Time 26.2 Sec. (24.2-36.6)
--- NOTE | 2018-06-14 19:29 | XRay Report ---
FINAL REPORT EXAM: XR CHEST ROUTINE 2V HISTORY: high bp TECHNIQUE: Frontal and lateral chest x-ray. PRIORS: 26 October 2017. FINDINGS: Cardiac and mediastinal silhouette within normal limits. Lungs again show mild elevation or eventration of right hemidiaphragm about the same. No focal consolidation, apparent pleural effusion or pneumothorax. Degenerative change in the thoracic spine. IMPRESSION: 1. Stable examination. No acute findings.
[2018-06-14 19:40] LABS: BUN/Creatinine Ratio 9; Blood Urea Nitrogen 6 mg/dL (9-20); Calcium 9.3 mg/dL (8.4-10.2); Hemolysis Index 2
[2018-06-14 22:33] VITALS: BP 142/60
--- NOTE | 2018-06-14 22:41 | Emergency Department Report ---
ED General Adult HPI - General Chief complaint: High BP Stated complaint: HIGH BP Time Seen by Provider: 06/14/18 22:13 Source: patient Mode of arrival: Wheelchair Limitations: No Limitations - History of Present Illness Initial comments: 77-year-old male presents to ED with complaints of blood pressure. Patient status post coronary artery bypass surgery 10 days ago at [place]. Library Services Assistant said patient had follow-up appointment with surgeon 2 days ago and blood pressure was high at that time. Lisinopril was added to dictation ends. Library Services Assistant states yesterday systolic blood pressure was in the 150s. This morning and SBP was 170s. Tonight BP was in the 180s/90s. States he called the nurse line and was instructed to come to the emergency room. EMS got a blood pressure of 170/90. Patient denies headache shortness of breath. Reports mild chest pressure worse with sitting up in a chair. States now that he is laying in stretcher pressure has resolved. -: Gradual, days(s) (2) Improves with: other (laying down) Worsens with: other (sitting up) Associated Symptoms: chest pain. denies: fever/chills, headaches, nausea/ vomiting, shortness of breath - Related Data Home Medications Medication Instructions Recorded Confirmed Last Taken Ezetimibe [Zetia] 10 mg PO QDAY 05/10/18 05/10/18 Unknown Levothyroxine Sodium [Synthroid] 175 mcg PO QDAY 05/10/18 05/10/18 Unknown Lisinopril [Zestril] 40 mg PO QDAY 05/10/18 05/10/18 05/10/18 Previous Rx's Medication Instructions Recorded Last Taken Type Metoprolol [Lopressor TAB] 37.5 mg PO BID #60 tablet 10/28/17 05/10/18 Rx Allergies Allergy/AdvReac Type Severity Reaction Status Date / Time codeine Allergy Itching Verified 09/20/17 14:14 Iodinated Contrast- Oral and Allergy Anaphylaxis Verified 05/11/18 07:32 IV Dye penicillin Allergy Rash Verified 09/20/17 14:14 aspirin AdvReac Unknown Verified 09/20/17 14:14 ED Review of Systems ROS: Stated complaint: HIGH BP Other details as noted in HPI Comment: All other systems reviewed and negative Constitutional: denies: fever Respiratory: denies: shortness of breath Cardiovascular: chest pain Gastrointestinal: denies: nausea, vomiting ED Past Medical Hx - Past Medical History Previous Medical History?: Yes Hx Hypertension: Yes Hx CVA: Yes (L sided deficits) Hx Diabetes: Yes Hx Asthma: Yes Hx HIV: No Additional medical history: Graves dx. gastric ulcers - Surgical History Past Surgical History?: Yes Additional Surgical History: knee OR bilat. thyroid OR. robotic heart surgery 10 days ago - Social History Smoking Status: Never Smoker Substance Use Type: None - Medications Home Medications: Home Medications Medication Instructions Recorded Confirmed Last Taken Type Metoprolol [Lopressor TAB] 37.5 mg PO BID #60 tablet 10/28/17 05/10/18 05/10/18 Rx Ezetimibe [Zetia] 10 mg PO QDAY 05/10/18 05/10/18 Unknown History Levothyroxine Sodium [Synthroid] 175 mcg PO QDAY 05/10/18 05/10/18 Unknown History Lisinopril [Zestril] 40 mg PO QDAY 05/10/18 05/10/18 05/10/18 History ED Physical Exam - General Limitations: No Limitations General appearance: alert, in no apparent distress - Head Head exam: Present: atraumatic, normocephalic - Eye Eye exam: Present: normal appearance - ENT ENT exam: Present: normal exam - Respiratory Respiratory exam: Present: normal lung sounds bilaterally. Absent: respiratory distress - Cardiovascular Cardiovascular Exam: Present: regular rate, normal rhythm, other (chest wall incision site appears clean, nonerythematous) - GI/Abdominal GI/Abdominal exam: Present: soft. Absent: tenderness - Extremities Exam Extremities exam: Present: normal inspection - Neurological Exam Neurological exam: Present: alert, oriented X3, motor sensory deficit (baseline left-sided weakness due to previous CVA) - Psychiatric Psychiatric exam: Present: normal affect, normal mood - Skin Skin exam: Present: warm, dry, intact, normal color ED Course Vital Signs 06/14/18 06/14/18 06/14/18 17:54 20:07 22:32 Temperature 98.8 F 98.5 F Pulse Rate 86 91 H 64 Respiratory 18 14 16 Rate Blood Pressure 166/87 143/73 Blood Pressure 142/60 [Left] O2 Sat by Pulse 100 95 94 Oximetry 06/15/18 01:14 Temperature Pulse Rate Respiratory 96 H Rate Blood Pressure Blood Pressure [Left] O2 Sat by Pulse 96 Oximetry - Consultations Consultation #1: 06/14/18 23:24 Dr Cohen paged. 06/15/18 00:[address] Shrestha returned page for Dr. Cohen. Informed him of initial elevated BP and current BP of 140s over 70s. Also informed him of the patient' s report of chest pressure, EKG findings and, normal troponin 2. States to tell patient to follow up in the office if chest pressure returns or if blood pressure becomes elevated again. States no need for admission or transfer at this time. ED Medical Decision Making - Lab Data Result diagrams: 06/14/18 18:14 06/14/18 18:14 - EKG Data -: EKG Interpreted by Me EKG shows normal: sinus rhythm, axis, QRS complexes, ST-T waves Rate: normal - EKG Data Interpretation: other (prolonged QT, Q waves present inferiorly and anteriorly) - Radiology Data Radiology results: report reviewed, image reviewed - Medical Decision Making 77 yo M w/ elevated BP. Improved w/o giving any meds for blood pressure. Pt reports chest pressure has improved, seems to be positional. Spoke w/ Dr Shrestha , advised pt to f/u in the office if chest pressure returns or BP becomes elevated again. This was relayed to pt. Will d/c home. - Differential Diagnosis essential HTN, HTN emergency, ACS Critical care attestation.: If time is entered above; I have spent that time in minutes in the direct care of this critically ill patient, excluding procedure time. ED Disposition Clinical Impression: Essential hypertension Disposition: DC-01 TO HOME OR SELFCARE Is pt being admited?: No Condition: Stable Instructions: Hypertension (ED) Referrals: PRIMARY CARE, [Primary Care Provider] - 3-5 Days Time of Disposition: 00:07
== END 2018-06-15 01:30 | disposition home or self-care (01) ==
LOC: ED 17:43
DX: I10 Essential (primary) hypertension (principal); E11.9 Type 2 diabetes mellitus without complications; J45.909 Unspecified asthma, uncomplicated; Z88.0 Allergy status to penicillin; Z88.6 Allergy status to analgesic agent; Z91.041 Radiographic dye allergy status; Z95.1 Presence of aortocoronary bypass graft
CPT/HCPCS: 36415; 71046; 80048; 84484; 85025; 85610; 85730; 93005; 93010; 99284

== ENCOUNTER 2019-03-15 04:06 | Inpatient (IN) | payer MEDICARE ==
[2019-03-15] MEDS ORDERED: PEPCID IV ONE (04:24)
[2019-03-15] MEDS ORDERED: SOLU-Medrol IV ONE (04:24)
--- NOTE | 2019-03-15 04:31 | Event Note ---
Date: 03/15/19 This is a pleasant 78-year-old gentleman, disabled from her previous stroke, presenting to the emergency room with nontraumatic right lower extremity urticarial rash, uncertain what the logic agent is, and also simultaneous tongue swelling. Patient on lisinopril. He does have minimal lingual angioedema. He is phonating normally, and protecting his airway at this time. He is given Benadryl in the field by EMS. We will obtain basic laboratory studies, x-ray of the chest, given Pepcid, Benadryl, placed on hospital monitor, and observed. Vital Signs 03/15/19 04:20 Temperature 98.5 F Pulse Rate 79 Respiratory 12 Rate Blood Pressure 164/88 Blood Pressure 164/88 [Right] O2 Sat by Pulse 99 Oximetry
--- NOTE | 2019-03-15 04:54 | XRay Report ---
PROCEDURE: XR CHEST 1V AP TECHNIQUE: Chest radiograph single view. HISTORY: allergic reaction COMPARISONS: None . FINDINGS: Single frontal view of the chest was acquired. Comparison is made to the prior examination of June 14, 2018. There is cardiomegaly, similar to prior exam. There is no evidence of congestive heart failure. There is no consolidative infiltrate. IMPRESSION: Cardiomegaly. Otherwise, no active disease in the chest This document is electronically signed by Keshav Longo MD., March 15 2019 04:52:25 AM ET
[2019-03-15 05:21] LABS: BUN/Creatinine Ratio 11; Blood Urea Nitrogen 9 mg/dL (9-20); Calcium 8.6 mg/dL (8.4-10.2); Hematocrit 41.1 % (35.5-45.6); Hemoglobin 14.1 gm/dl (11.8-15.2); Hemolysis Index 7; Mean Corpuscular HGB Conc 34 % (32-34); Mean Corpuscular Volume 86 fl (84-94); Platelet Count 283 K/mm3 (140-440); Red Blood Count 4.77 M/mm3 (3.65-5.03); Red Cell Distribution Width 14.1 % (13.2-15.2)
--- NOTE | 2019-03-15 07:07 | Emergency Department Report ---
HPI - General Chief Complaint: Allergic Reaction Time Seen by Provider: 03/15/19 06:11 - HPI HPI: 78-year-old male with a past medical history asthma, CVA with left-sided deficit, diabetes, hypertension, Graves' disease, and previous gastric ulcers presents to the hospital with complaints of allergic reaction and started just prior to arrival. Arrival time 4:15 AM. Patient was bit by ants around 8 PM. Patient began to have swelling to the tongue, swelling to hands right greater than left, and a pruritic urticarial rash. Patient complain of some mild difficulty swallowing initially without respiratory distress. Patient received Benadryl 50 mg IM a row and then IV Solu-Medrol and IV Pepcid prior to my evaluation. Patient reports improved pruritus and decreased swelling but not back to baseline. Patient also is on lisinopril. He denies any new food, medicine, or soap exposures. ED Past Medical Hx - Past Medical History Previous Medical History?: Yes Hx Hypertension: Yes Hx CVA: Yes (L sided deficits) Hx Diabetes: Yes Hx Asthma: Yes Hx HIV: No Additional medical history: Graves dx. gastric ulcers - Surgical History Past Surgical History?: Yes Additional Surgical History: knee OR bilat. thyroid OR. robotic heart surgery 10 days ago - Social History Smoking Status: Never Smoker Substance Use Type: None - Medications Home Medications: Home Medications Medication Instructions Recorded Confirmed Last Taken Type Metoprolol [Lopressor TAB] 37.5 mg PO BID #60 tablet 10/28/17 05/10/18 05/10/18 Rx Ezetimibe [Zetia] 10 mg PO QDAY 05/10/18 05/10/18 Unknown History Levothyroxine Sodium [Synthroid] 175 mcg PO QDAY 05/10/18 05/10/18 Unknown History Lisinopril [Zestril] 40 mg PO QDAY 05/10/18 05/10/18 05/10/18 History Ciprofloxacin HCl [Ciprofloxacin 500 mg PO Q12H #20 tab 07/21/18 Unknown Rx TAB] metroNIDAZOLE [Flagyl] 500 mg PO Q12HR #20 tab 07/21/18 Unknown Rx Dicyclomine [Bentyl] 10 mg PO QID #15 capsule 07/24/18 Unknown Rx traMADol [Ultram] 50 mg PO Q6HR PRN #12 tablet 07/24/18 Unknown Rx Acetaminophen 500 mg PO Q8H PRN #20 tablet 07/25/18 Unknown Rx ED Review of Systems ROS: Stated complaint: ALLERGIC REACTION Other details as noted in HPI Comment: All other systems reviewed and negative Physical Exam - Physical Exam Vital Signs: Vital Signs 03/15/19 03/15/19 03/15/19 04:20 05:00 06:10 Temperature 98.5 F Pulse Rate 79 72 Respiratory 12 18 21 Rate Blood Pressure 164/88 Blood Pressure 164/88 152/81 [Right] O2 Sat by Pulse 99 99 95 Oximetry Physical Exam: General: No limitations Head exam: Atraumatic Eyes exam: Normal appearance ENT: Moist mucous membrane, mild to moderate tongue swelling and patient reports that it makes it more difficult for him to talk. Neck exam: Normal inspection, full range of motion, no meningismus nontender, no stridor Respiratory exam: Clear to auscultation bilateral, no wheezes, rales, crackles Cardiovascular: Normal rate and rhythm Abdomen: Soft, nondistended, and nontender, with normal bowel sounds, no rebound, or guarding Extremity: Full range of motion normal inspection no deformity Back: Normal Inspection, full range of motion, no tenderness Neurologic: Alert, oriented x3, left-sided weakness compared to the right chronic and at baseline. Psychiatric: normal affect, normal mood Skin: Warm, dry, intact redness to bilateral palms of hands ED Course Vital Signs 03/15/19 03/15/19 03/15/19 04:20 05:00 06:10 Temperature 98.5 F Pulse Rate 79 72 Respiratory 12 18 21 Rate Blood Pressure 164/88 Blood Pressure 164/88 152/81 [Right] O2 Sat by Pulse 99 99 95 Oximetry ED Medical Decision Making - Lab Data Result diagrams: 03/15/19 04:50 03/15/19 04:50 Lab Results 03/15/19 03/15/19 03/15/19 Range/Units 04:50 04:50 04:50 WBC 9.6 (4.5-11.0) K/mm3 RBC 4.77 (3.65-5.03) M/mm3 Hgb 14.1 (11.8-15.2) gm/dl Hct 41.1 (35.5-45.6) % MCV 86 (84-94) fl MCH 30 (28-32) pg MCHC 34 (32-34) % RDW 14.1 (13.2-15.2) % Plt Count 283 (140-440) K/mm3 Sodium 136 L (137-145) mmol/L Potassium 4.0 (3.6-5.0) mmol/L Chloride 101.4 (98-107) mmol/L Carbon Dioxide 24 (22-30) mmol/L Anion Gap 15 mmol/L BUN 9 (9-20) mg/dL Creatinine 0.8 (0.8-1.5) mg/dL Estimated GFR > 60 ml/min BUN/Creatinine Ratio 11 % Glucose 135 H (75-100) mg/dL Calcium 8.6 (8.4-10.2) mg/dL Magnesium 1.80 (1.7-2.3) mg/dL Total Creatine Kinase 85 (55-170) units/L - EKG Data -: EKG Interpreted by Md EKG shows normal: sinus rhythm, axis (qrs -1), QRS complexes (qrsd 97), ST-T waves (no stemi) Rate: normal (72) - EKG Data When compared to previous EKG there are: no significant change (06/14/18) - Radiology Data Radiology results: report reviewed PROCEDURE: XR CHEST 1V AP TECHNIQUE: Chest radiograph single view. HISTORY: allergic reaction COMPARISONS: None . FINDINGS: Single frontal view of the chest was acquired. Comparison is made to the prior examination of June 14, 2018. There is cardiomegaly, similar to prior exam. There is no evidence of congestive heart failure. There is no consolidative infiltrate. IMPRESSION: Cardiomegaly. Otherwise, no active disease in the chest - Medical Decision Making Patient has persistent tongue swelling without any airway compromise at this time. We'll admit to the hospital for further treatment and observation - Differential Diagnosis allergic reaction to insect bite, BERTHA inhibitor allergy, angioedema Critical Care Time: No Critical care attestation.: If time is entered above; I have spent that time in minutes in the direct care of this critically ill patient, excluding procedure time. ED Disposition Clinical Impression: Acute allergic reaction, On angiotensin-converting enzyme (BERTHA) inhibitors, Allergy to ant bite Disposition: DC-09 OP ADMIT IP TO THIS HOSP Is pt being admited?: Yes Condition: Stable Time of Disposition: 07:07 (DR duron/hosp)
[2019-03-15] MEDS ORDERED: SODIUM CHLORIDE FLUSH SYRINGE 10 ML IV PRN (13:10)
[2019-03-15] MEDS ORDERED: TYLENOL PO PRN (13:10)
[2019-03-15] MEDS ORDERED: ZOFRAN IV PRN (13:10)
[2019-03-15] MEDS ORDERED: BENADRYL IV PRN (13:10)
--- NOTE | 2019-03-15 13:10 | History and Physical Report ---
History of Present Illness Date of examination: 03/15/19 Date of admission: 03/15/19 07:08 Chief complaint: tongue swelling History of present illness: 78-year-old male with a past medical history asthma, CVA with left-sided deficit, diabetes, hypertension, Graves' disease, and previous gastric ulcers presents to the hospital with complaints of allergic reaction that started just prior to arrival. Patient was bit by ants around 8 PM. Patient began to have swelling to the tongue, swelling to hands right greater than left, and a pruritic urticarial rash. Patient complained of some mild difficulty swallowing initially without respiratory distress. Patient received Benadryl 50 mg IM, IV Solu-Medrol and IV Pepcid per ER record. Patient reports improved pruritus and decreased swelling of the tongue back to baseline upon my evaluation. Patient also is on lisinopril. He denies any new food, medicine, or soap exposures. No CP or SOB. No cough or cold sxs Past History Past Medical History: diabetes, hypertension, stroke, other (asthma, Graves dz) Past Surgical History: No surgical history Social history: no significant social history Family history: no significant family history Medications and Allergies Allergies Allergy/AdvReac Type Severity Reaction Status Date / Time codeine Allergy Itching Verified 09/20/17 14:14 Iodinated Contrast- Oral and Allergy Anaphylaxis Verified 05/11/18 07:32 IV Dye penicillin Allergy Rash Verified 09/20/17 14:14 aspirin AdvReac Unknown Verified 09/20/17 14:14 lisinopril AdvReac Angioedema Verified 03/15/19 13:06 Home Medications Medication Instructions Recorded Confirmed Last Taken Type Metoprolol [Lopressor TAB] 37.5 mg PO BID #60 tablet 10/28/17 03/15/19 03/14/19 22:00 Rx Levothyroxine Sodium [Synthroid] 175 mcg PO QDAY 05/10/18 03/15/19 03/14/19 06:00 History Lisinopril [Zestril] 40 mg PO QDAY 05/10/18 03/15/19 03/14/19 08:00 History Atorvastatin Calcium [Lipitor] 80 mg PO QHS 03/15/19 03/15/19 03/14/19 22:00 History Clopidogrel [Plavix] 75 mg PO QDAY 03/15/19 03/15/19 03/14/19 08:00 History Insulin Lispro Protamin/Lispro 0 unit SQ TID 03/15/19 03/15/19 03/15/19 History [Humalog Mix 50-50 Vial] hydroCHLOROthiazide [Hctz] 12.5 mg PO QDAY 03/15/19 03/15/19 03/15/19 08:00 History Review of Systems All systems: negative Exam - Constitutional Vitals: Temp Pulse Resp BP Pulse Ox 98.6 F 90 18 134/76 98 03/15/19 12:07 03/15/19 12:07 03/15/19 12:07 03/15/19 12:07 03/15/19 12:07 General appearance: Present: no acute distress, well-nourished - EENT Eyes: Present: PERRL ENT: hearing intact, clear oral mucosa - Neck Neck: Present: supple, normal ROM - Respiratory Respiratory effort: normal Respiratory: bilateral: CTA - Cardiovascular Heart Sounds: Present: S1 & S2. Absent: rub, click - Extremities Extremities: pulses symmetrical, No edema Peripheral Pulses: within normal limits - Abdominal General gastrointestinal: Present: soft, non-tender, non-distended, normal bowel sounds Male genitourinary: Present: normal - Integumentary Integumentary: Present: clear, warm, dry - Musculoskeletal Musculoskeletal: gait normal, strength equal bilaterally - Psychiatric Psychiatric: appropriate mood/affect, intact judgment & insight - Neurologic Neurologic: CNII-XII intact, moves all extremities Results - Labs CBC & Chem 7: 03/15/19 04:50 03/15/19 04:50 Labs: Laboratory Last Values WBC 9.6 K/mm3 (4.5-11.0) 03/15/19 04:50 RBC 4.77 M/mm3 (3.65-5.03) 03/15/19 04:50 Hgb 14.1 gm/dl (11.8-15.2) 03/15/19 04:50 Hct 41.1 % (35.5-45.6) 03/15/19 04:50 MCV 86 fl (84-94) 03/15/19 04:50 MCH 30 pg (28-32) 03/15/19 04:50 MCHC 34 % (32-34) 03/15/19 04:50 RDW 14.1 % (13.2-15.2) 03/15/19 04:50 Plt Count 283 K/mm3 (140-440) 03/15/19 04:50 Sodium 136 mmol/L (137-145) L 03/15/19 04:50 Potassium 4.0 mmol/L (3.6-5.0) 03/15/19 04:50 Chloride 101.4 mmol/L (98-107) 03/15/19 04:50 Carbon Dioxide 24 mmol/L (22-30) 03/15/19 04:50 15 mmol/L 03/15/19 04:50 BUN 9 mg/dL (9-20) 03/15/19 04:50 0.8 mg/dL (0.8-1.5) 03/15/19 04:50 Estimated GFR > 60 ml/min 03/15/19 04:50 11 % 03/15/19 04:50 Glucose 135 mg/dL (75-100) H 03/15/19 04:50 POC Glucose 223 (70-105) H 03/15/19 12:14 Calcium 8.6 mg/dL (8.4-10.2) 03/15/19 04:50 Magnesium 1.80 mg/dL (1.7-2.3) 03/15/19 04:50 85 units/L (55-170) 03/15/19 04:50 Assessment and Plan Assessment and plan: Allergic rxn/Angioedema. Pt likely with rxn to lisinopril. Pepcid, Benadryl and Solumedrol. hx CVA. Stable Asthma. Compensated Graves dz. Stable PUD. PPI daily DMII. Accuchecks and SSRI HTN. Added lisinopril to allergy list. Monior BP and add Norvasc if needed
[2019-03-15] MEDS: SOLU-Medrol IV SCH (18:05)
[2019-03-15] MEDS: PEPCID IV SCH (21:51)
[2019-03-15] MEDS: SODIUM CHLORIDE FLUSH SYRINGE 10 ML IV SCH (21:52)
[2019-03-15] MEDS: LOPRESSOR PO SCH (23:13)
[2019-03-15] MEDS: HumuLIN R SUB-Q SCH (23:14)
[2019-03-16] MEDS: SOLU-Medrol IV SCH (03:56)
[2019-03-16] MEDS: SYNTHROID PO SCH ×2 (05:04)
[2019-03-16 05:31] LABS: Basophils % (Auto) 0.1 % (0.0-1.8); Hematocrit 38.8 % (35.5-45.6); Hemoglobin 13.2 gm/dl (11.8-15.2); Lymphocytes # (Auto) 1.4 K/mm3 (1.2-5.4); Lymphocytes % (Auto) 12.2 % (13.4-35.0); Mean Corpuscular HGB Conc 34 % (32-34); Mean Corpuscular Volume 86 fl (84-94); Monocytes # (Auto) 0.8 K/mm3 (0.0-0.8); Monocytes % (Auto) 7.4 % (0.0-7.3); Platelet Count 294 K/mm3 (140-440); Red Cell Distribution Width 14.1 % (13.2-15.2)
[2019-03-16 05:59] LABS: BUN/Creatinine Ratio 19; Blood Urea Nitrogen 17 mg/dL (9-20); Calcium 8.8 mg/dL (8.4-10.2); Hemolysis Index 6
[2019-03-16] MEDS: HumuLIN R SUB-Q SCH ×4 (09:37→22:08)
[2019-03-16] MEDS ORDERED: ZESTRIL PO SCH (10:00)
[2019-03-16] MEDS: PLAVIX PO SCH (10:05)
[2019-03-16] MEDS: LOPRESSOR PO SCH ×2 (10:06→22:08)
[2019-03-16] MEDS: PEPCID IV SCH ×2 (10:06→22:08)
[2019-03-16] MEDS: HCTZ PO SCH (10:06)
[2019-03-16] MEDS: LOVENOX SUB-Q SCH (10:06)
[2019-03-16] MEDS: SODIUM CHLORIDE FLUSH SYRINGE 10 ML IV SCH ×2 (10:08→22:08)
--- NOTE | 2019-03-16 14:26 | Progress Note ---
Assessment and Plan Assessment and plan: Allergic rxn/Angioedema. Pt likely with rxn to lisinopril. Pepcid, Benadryl and Solumedrol. hx CVA. Stable Asthma. Compensated Graves dz. Stable PUD. PPI daily DMII. Accuchecks and SSRI HTN. Added lisinopril to allergy list. Monitor BP and add Norvasc if needed History Interval history: Pt reports dizziness with solumedrol Hospitalist Physical - Constitutional Vitals: Temp Pulse Resp BP Pulse Ox 98.3 F 81 18 141/70 98 03/16/19 11:34 03/16/19 11:34 03/16/19 11:36 03/16/19 11:34 03/16/19 11:34 General appearance: Present: no acute distress, well-nourished - EENT Eyes: Present: PERRL, EOM intact ENT: hearing intact, clear oral mucosa, dentition normal - Neck Neck: Present: supple, normal ROM - Respiratory Respiratory effort: normal Respiratory: bilateral: CTA - Cardiovascular Rhythm: regular Heart Sounds: Present: S1 & S2. Absent: gallop, rub - Extremities Extremities: no ischemia, No edema, Full ROM - Abdominal General gastrointestinal: soft, non-tender, non-distended, normal bowel sounds - Integumentary Integumentary: Present: clear, warm, dry - Neurologic Neurologic: CNII-XII intact, moves all extremities Results - Labs CBC & Chem 7: 03/16/19 05:00 03/16/19 05:00 Labs: Laboratory Last Values WBC 11.2 K/mm3 (4.5-11.0) H 03/16/19 05:00 RBC 4.50 M/mm3 (3.65-5.03) 03/16/19 05:00 Hgb 13.2 gm/dl (11.8-15.2) 03/16/19 05:00 Hct 38.8 % (35.5-45.6) 03/16/19 05:00 MCV 86 fl (84-94) 03/16/19 05:00 MCH 29 pg (28-32) 03/16/19 05:00 MCHC 34 % (32-34) 03/16/19 05:00 RDW 14.1 % (13.2-15.2) 03/16/19 05:00 Plt Count 294 K/mm3 (140-440) 03/16/19 05:00 Lymph % (Auto) 12.2 % (13.4-35.0) L 03/16/19 05:00 [place] % (Auto) 7.4 % (0.0-7.3) H 03/16/19 05:00 Eos % (Auto) 0.0 % (0.0-4.3) 03/16/19 05:00 Baso % (Auto) 0.1 % (0.0-1.8) 03/16/19 05:00 Lymph # 1.4 K/mm3 (1.2-5.4) 03/16/19 05:00 [place] # 0.8 K/mm3 (0.0-0.8) 03/16/19 05:00 Eos # 0.0 K/mm3 (0.0-0.4) 03/16/19 05:00 Baso # 0.0 K/mm3 (0.0-0.1) 03/16/19 05:00 Seg Neutrophils % 80.3 % (40.0-70.0) H 03/16/19 05:00 Seg Neutrophils # 9.0 K/mm3 (1.8-7.7) H 03/16/19 05:00 Sodium 138 mmol/L (137-145) 03/16/19 05:00 Potassium 4.1 mmol/L (3.6-5.0) 03/16/19 05:00 Chloride 101.3 mmol/L (98-107) 03/16/19 05:00 Carbon Dioxide 23 mmol/L (22-30) 03/16/19 05:00 18 mmol/L 03/16/19 05:00 BUN 17 mg/dL (9-20) 03/16/19 05:00 0.9 mg/dL (0.8-1.5) 03/16/19 05:00 Estimated GFR > 60 ml/min 03/16/19 05:00 19 % 03/16/19 05:00 Glucose 258 mg/dL (75-100) H 03/16/19 05:00 POC Glucose 268 (70-105) H 03/16/19 12:31 Calcium 8.8 mg/dL (8.4-10.2) 03/16/19 05:00 Magnesium 1.80 mg/dL (1.7-2.3) 03/15/19 04:50 85 units/L (55-170) 03/15/19 04:50 Active Medications - Current Medications Current Medications: Generic Name Dose Route Start Last Admin Trade Name Freq PRN Reason Stop Dose Admin Acetaminophen 650 mg 03/15/19 13:10 Tylenol PO Q4H PRN Pain MILD(1-3)/Fever >100.5/CALABRESE Atorvastatin Calcium 80 mg 03/15/19 22:00 03/15/19 23:13 Lipitor PO 80 mg QHS MORENA Administration Clopidogrel Bisulfate 75 mg 03/16/19 10:00 03/16/19 10:05 Plavix PO 75 mg QDAY MORENA Administration Diphenhydramine HCl 25 mg 03/15/19 13:10 Benadryl IV Q6H PRN Itching Enoxaparin Sodium 40 mg 03/16/19 10:00 03/16/19 10:06 Lovenox SUB-Q 40 mg QDAY MORENA Administration Famotidine 20 mg 03/15/19 22:00 03/16/19 10:06 Pepcid IV 20 mg BID MORENA Administration Hydrochlorothiazide 12.5 mg 03/16/19 10:00 03/16/19 10:06 Hctz PO 12.5 mg QDAY MORENA Administration Insulin Human Regular 0 units 03/15/19 22:00 03/16/19 13:09 Humulin R SUB-Q 4 units ACHS MORENA Administration Protocol Levothyroxine Sodium 125 mcg 03/16/19 06:00 03/16/19 05:04 Synthroid PO 125 mcg QDAY@0600 MORENA Administration Levothyroxine Sodium 50 mcg 03/16/19 06:00 03/16/19 05:04 Synthroid PO 50 mcg DAILY@0600 [facility] Administration Methylprednisolone Sodium Succinate 40 mg 03/15/19 16:00 03/16/19 03:56 Solu-Medrol IV Not Given Q12H [facility] Metoprolol Tartrate 37.5 mg 03/15/19 22:00 03/16/19 10:06 Lopressor PO 37.5 mg BID MORENA Administration Ondansetron HCl 4 mg 03/15/19 13:10 Zofran IV Q8H PRN Nausea And Vomiting Sodium Chloride 10 ml 03/15/19 22:00 03/16/19 10:08 Sodium Chloride Flush Syringe 10 Ml IV 10 ml BID MORENA Administration Sodium Chloride 10 ml 03/15/19 13:10 Sodium Chloride Flush Syringe 10 Ml IV PRN PRN LINE FLUSH
[2019-03-17] MEDS: SYNTHROID PO SCH ×2 (05:40)
[2019-03-17 08:28] VITALS: BP 166/91
--- NOTE | 2019-03-17 08:47 | Discharge Summary ---
Providers - Providers Date of Admission: 03/15/19 07:08 Date of discharge: 03/17/19 Attending physician: LENA FREDERICK Primary care physician: [employer] Hospitalization Reason for admission: angioedema Condition: Stable Hospital course: 78-year-old male with a past medical history asthma, CVA with left-sided deficit, diabetes, hypertension, Graves' disease, and previous gastric ulcers presented to the hospital with complaints of allergic reaction that started just prior to arrival. Patient was bit by ants around 8 PM [employer]. Patient began to have swelling to the tongue, swelling to hands right greater than left, and a pruritic urticarial rash. Patient complained of some mild difficulty swallowing initially without respiratory distress. Patient received Benadryl 50 mg IM, IV Solu-Medrol and IV Pepcid per ER record. Patient reports improved pruritus and decreased swelling of the tongue back to baseline upon my evaluation. Patient was also on lisinopril. Patient was admitted with diagnosis of allergic reaction and angioedema. Patient was maintained on Benadryl, Solu-Medrol and Pepcid. Patient had significant improvement, resolution of symptoms and was felt to have received maximal hospital benefit or discharge. Dedicated discharged on 32 minutes. Disposition: DC-01 TO HOME OR SELFCARE Time spent for discharge: 32 - Discharge Diagnoses (1) Angioedema Status: Acute (2) Acute allergic reaction Status: Acute (3) Allergy to ant bite Status: Acute Core Measure Documentation - Palliative Care Palliative Care/ Comfort Measures: Not Applicable - Core Measures Any of the following diagnoses?: none Exam - Constitutional Vitals: Temp Pulse Resp BP Pulse Ox 98.2 F 64 18 166/91 91 03/17/19 07:58 03/17/19 08:32 03/17/19 07:58 03/17/19 07:58 03/17/19 07:58 General appearance: Present: no acute distress, well-nourished - EENT Eyes: Present: PERRL ENT: hearing intact, clear oral mucosa - Neck Neck: Present: supple, normal ROM - Respiratory Respiratory effort: normal Respiratory: bilateral: CTA - Cardiovascular Heart Sounds: Present: S1 & S2. Absent: rub, click - Extremities Extremities: pulses symmetrical, No edema Peripheral Pulses: within normal limits - Abdominal General gastrointestinal: Present: soft, non-tender, non-distended, normal bowel sounds Male genitourinary: Present: normal - Integumentary Integumentary: Present: clear, warm, dry - Musculoskeletal Musculoskeletal: gait normal, strength equal bilaterally - Psychiatric Psychiatric: appropriate mood/affect, intact judgment & insight - Neurologic Neurologic: CNII-XII intact, moves all extremities Plan Activity: no restrictions Weight Bearing Status: Full Weight Bearing Diet: regular Follow up with: ANNALEE GREY MD [Referring] - 3-5 Days Prescriptions: hydroCHLOROthiazide [HCTZ] 12.5 mg PO QDAY #30 capsule Atorvastatin Calcium [Lipitor] 80 mg PO QHS #30 tablet Metoprolol [Lopressor TAB] 37.5 mg PO BID #60 tablet Amlodipine Besylate [Norvasc] 5 mg PO DAILY #30 tablet Clopidogrel [Plavix] 75 mg PO QDAY #30 tablet Levothyroxine Sodium [Synthroid] 175 mcg PO QDAY #30 tablet
[2019-03-17] MEDS: LOPRESSOR PO SCH (10:23)
[2019-03-17] MEDS: PEPCID IV SCH (10:23)
[2019-03-17] MEDS: PLAVIX PO SCH (10:23)
[2019-03-17] MEDS: HCTZ PO SCH (10:23)
[2019-03-17] MEDS: HumuLIN R SUB-Q SCH (10:24)
[2019-03-17] MEDS: LOVENOX SUB-Q SCH (10:24)
[2019-03-17] MEDS: SODIUM CHLORIDE FLUSH SYRINGE 10 ML IV SCH (10:25)
== END 2019-03-17 12:05 | disposition home or self-care (01) | DRG 916 ==
LOC: ED 04:06 → 4A 07:08
PROVIDERS: ADMIT Hospitalist; ATTEND Hospitalist
DX: T78.3XXA Angioneurotic edema, initial encounter (principal); I69.354 Hemiplegia and hemiparesis following cerebral infarction affecting left non-dominant side; I10 Essential (primary) hypertension; J45.909 Unspecified asthma, uncomplicated; E11.9 Type 2 diabetes mellitus without complications; L29.9 Pruritus, unspecified; T78.49XA Other allergy, initial encounter; T63.481A Toxic effect of venom of other arthropod, accidental (unintentional), initial encounter; E05.00 Thyrotoxicosis with diffuse goiter without thyrotoxic crisis or storm; Z91.038 Other insect allergy status; Y92.89 Other specified places as the place of occurrence of the external cause; Z79.899 Other long term (current) drug therapy; Z88.5 Allergy status to narcotic agent; Z88.0 Allergy status to penicillin; Z88.6 Allergy status to analgesic agent; Z91.041 Radiographic dye allergy status
CPT/HCPCS: 36415; 71045; 80048; 82550; 82962; 83735; 85025; 85027; 93005; 93010; 96374; 96375; G0378; A9270-GY; J1650; J1815; J2920; J2930

== ENCOUNTER 2020-04-05 17:13 | Emergency (ER) | payer MEDICARE, OTHER ==
[2020-04-05] MEDS ORDERED: LACTULOSE 20 GM/30 ML ORAL LIQD PO ONE (21:53)
--- NOTE | 2020-04-05 22:07 | XRay Report ---
ABDOMEN 2 VIEW(S) INDICATION / CLINICAL INFORMATION: Constipation. COMPARISON: None available. FINDINGS: TUBES / LINES: None. BOWEL GAS PATTERN: There is only a mild amount of stool throughout the colon. I see no evidence of deborah wel obstruction or mass effect. FREE AIR / EXTRALUMINAL GAS: None seen. ADDITIONAL FINDINGS: There are advanced degenerative changes involving both hip joints. There is mode rate lower lumbar spondylosis. Mild vascular calcifications are present. IMPRESSION: No acute abnormality. Signer Name: Jonah Soto MD Signed: 04/05/2020 10:03 PM Workstation Name: [id number]
--- NOTE | 2020-04-05 22:17 | Emergency Department Report ---
HPI - General Chief Complaint: Pain General Time Seen by Provider: 04/05/20 21:18 - HPI HPI: Room 8 The patient is a 79-year-old male present with a chief complaint of constipation. The patient states he normally requires medication to complete his bowel movement whenever he has the urge. The patient states he has not had the urge to have a bowel movement 3 days ago but he decided to not take any medication to help himself go. Patient states he now has the urge to go but is unable to have a bowel movement. Patient states he has not had a bowel movement in 3 days. Patient states he is not passing flatus. Patient denies nausea or vomiting. Patient states he took [id number] laxatives as well as manually disimpacted himself but was unable to place an enema. ED Past Medical Hx - Past Medical History Previous Medical History?: Yes Hx Hypertension: Yes Hx CVA: Yes (L sided deficits) Hx Diabetes: Yes Hx Asthma: Yes Additional medical history: Graves dx. gastric ulcers, Constipation - Surgical History Past Surgical History?: Yes Additional Surgical History: knee OR bilat. thyroid OR. robotic heart surgery 10 days ago - Family History Family history: no significant - Social History Smoking Status: Never Smoker Substance Use Type: None - Medications Home Medications: Home Medications Medication Instructions Recorded Confirmed Last Taken Type Insulin Lispro Protamin/Lispro 0 unit SQ TID 03/15/19 03/15/19 03/15/19 History [HumaLOG Mix 50-50 VIAL] Amlodipine Besylate [Norvasc] 5 mg PO DAILY #30 tablet 03/17/19 Unknown Rx Atorvastatin Calcium [Lipitor] 80 mg PO QHS #30 tablet 03/17/19 Unknown Rx Clopidogrel [Plavix] 75 mg PO QDAY #30 tablet 03/17/19 Unknown Rx Insulin Lispro Protamin/Lispro 25 units SQ TID 30 Days vial 03/17/19 Unknown Rx [HumaLOG Mix 50-50 VIAL] Levothyroxine Sodium [Synthroid] 175 mcg PO QDAY #30 tablet 03/17/19 Unknown Rx Metoprolol [Lopressor TAB] 37.5 mg PO BID #60 tablet 03/17/19 Unknown Rx hydroCHLOROthiazide [HCTZ] 12.5 mg PO QDAY #30 capsule 03/17/19 Unknown Rx Polyethylene Glycol/Elect 4,000 ml PO ONCE PRN #1 bottle 04/06/20 Unknown Rx [Golytely] ED Review of Systems ROS: Stated complaint: CONSTIPATION Other details as noted in HPI Constitutional: no symptoms reported Respiratory: no symptoms reported Endocrine: no symptoms reported Gastrointestinal: abdominal pain, constipation. denies: nausea, vomiting Physical Exam - Physical Exam Vital Signs: Vital Signs 04/05/20 04/05/20 04/05/20 17:17 21:46 21:49 Temperature 98.5 F Pulse Rate 90 108 H Respiratory 18 18 20 Rate Blood Pressure 179/82 Blood Pressure 169/107 [Right] O2 Sat by Pulse 99 98 Oximetry Physical Exam: GENERAL: The patient is well-developed well-nourished male lying on stretcher no t appearing to be in acute distress. [] HEENT: Normocephalic. Atraumatic. Extraocular motions are intact. Patient has moist mucous membranes. NECK: Supple. Trachea midline CHEST/LUNGS: Clear to auscultation. There is no respiratory distress noted. HEART/CARDIOVASCULAR: Regular. There is no tachycardia. There is no gallop rub or murmur. ABDOMEN: Abdomen is soft, nontender. Patient has normal bowel sounds. There is no abdominal distention. SKIN: There is no rash. There is no edema. There is no diaphoresis. NEURO: The patient is awake, alert, and oriented. The patient is cooperative. The patient has normal speech MUSCULOSKELETAL: There is no evidence of acute injury. ED Course Vital Signs 04/05/20 04/05/20 04/05/20 17:17 21:46 21:49 Temperature 98.5 F Pulse Rate 90 108 H Respiratory 18 18 20 Rate Blood Pressure 179/82 Blood Pressure 169/107 [Right] O2 Sat by Pulse 99 98 Oximetry - Reevaluation(s) Reevaluation #1: 04/06/20 00:03 Patient states he feels improved and no longer feels as though his abdomen is distended. Strong warnings given - Rectal Disimpaction Consent Obtained: verbal consent Time Out Performed: No Indication: fecal impaction Procedural Sedation: No Sedation/Analgesia: none Technique: manual disimpaction with Result: significant stool output Patient Tolerated Procedure: no complications ED Medical Decision Making - Radiology Data Radiology results: report reviewed (Abdominal x-ray), image reviewed (Abdominal x-ray) interpreted by me: Abdominal [id number]. No air-fluid levels [facility] [address] [place] [address] XRay Report Signed Patient: HAKAN URIBE MR#: [id number] : 1940 Acct:[id number] Age/Sex: 79 / M ADM Date: 04/05/20 Loc: ED Attending Dr: Ordering Physician: BROOKE MACARIO MD Date of Service: 04/05/20 Procedure(s): XR abdomen 2V Accession Number(s): [id number] cc: BROOKE MACARIO MD Fluoro Time In Minutes: ABDOMEN 2 VIEW(S) INDICATION / CLINICAL INFORMATION: Constipation. COMPARISON: None available. FINDINGS: TUBES / LINES: None. BOWEL GAS PATTERN: There is only a mild amount of stool throughout the colon. I see no evidence of bowel obstruction or mass effect. FREE AIR / EXTRALUMINAL GAS: None seen. ADDITIONAL FINDINGS: There are advanced degenerative changes involving both hip joints. There is moderate lower lumbar spondylosis. Mild vascular calcifications are present. IMPRESSION: No acute abnormality. Signer Name: Jonah Soto MD Signed: 04/05/2020 10:03 PM Workstation Name: [id number] Transcribed By: RT Dictated By: Jonah Soto MD Electronically Authenticated By: Jonah Soto MD Signed Date/Time: 04/05/202202 DD/ 00 TD/TT: - Differential Diagnosis Constipation Critical care attestation.: If time is entered above; I have spent that time in minutes in the direct care of this critically ill patient, excluding procedure time. 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 Please follow-up with him for further evaluation) Time of Disposition: 00:05
[2020-04-06 00:34] VITALS: BP 160/78
== END 2020-04-06 00:34 | disposition home or self-care (01) ==
LOC: ED 17:13
DX: K56.41 Fecal impaction (principal); E11.9 Type 2 diabetes mellitus without complications; J45.909 Unspecified asthma, uncomplicated; I10 Essential (primary) hypertension; Z79.899 Other long term (current) drug therapy; Z79.4 Long term (current) use of insulin
CPT/HCPCS: 74019

== ENCOUNTER 2020-11-26 08:03 | Emergency (ER) | payer MEDICARE ==
--- NOTE | 2020-11-26 08:12 | Emergency Department Report ---
ED General Adult HPI - General Stated complaint: DIARRHEA Time Seen by Provider: 11/26/20 08:07 - History of Present Illness Initial comments: Patient is a 80-year-old male presents emergency department for evaluation of loose watery stool x4 days since taking a home remedy for constipation ("[place] Kay"). Patient states he did have normal bowel movement but was followed by consistent episodes of loose stool. Patient denies abdominal pain, denies n ausea vomiting, denies fever, denies dysuria, denies chest pain, denies weakness, denies shortness of breath. Patient states he called home nurse who recommended ER evaluation. - Related Data Home Medications Medication Instructions Recorded Confirmed Last Taken Insulin Lispro Protamin/Lispro 0 unit SQ TID 03/15/19 03/15/19 03/15/19 [HumaLOG Mix 50-50 VIAL] Previous Rx's Medication Instructions Recorded Last Taken Type Amlodipine Besylate [Norvasc] 5 mg PO DAILY #30 tablet 03/17/19 Unknown Rx Atorvastatin Calcium [Lipitor] 80 mg PO QHS #30 tablet 03/17/19 Unknown Rx Clopidogrel [Plavix] 75 mg PO QDAY #30 tablet 03/17/19 Unknown Rx Insulin Lispro Protamin/Lispro 25 units SQ TID 30 Days vial 03/17/19 Unknown Rx [HumaLOG Mix 50-50 VIAL] Levothyroxine Sodium [Synthroid] 175 mcg PO QDAY #30 tablet 03/17/19 Unknown Rx Metoprolol [Lopressor TAB] 37.5 mg PO BID #60 tablet 03/17/19 Unknown Rx hydroCHLOROthiazide [HCTZ] 12.5 mg PO QDAY #30 capsule 03/17/19 Unknown Rx Polyethylene Glycol/Elect 4,000 ml PO ONCE PRN #1 bottle 04/06/20 Unknown Rx [Golytely] levoFLOXacin [Levaquin TAB] 750 mg PO QDAY 9 Days #9 tablet 11/26/20 Unknown Rx metroNIDAZOLE [Flagyl TAB] 500 mg PO Q8HR 10 Days #29 tablet 11/26/20 Unknown Rx Allergies Allergy/AdvReac Type Severity Reaction Status Date / Time codeine Allergy Itching Verified 09/20/17 14:14 Iodinated Contrast Media Allergy Anaphylaxis Verified 05/11/18 07:32 [Iodinated Contrast- Oral and IV Dye] penicillin Allergy Rash Verified 09/20/17 14:14 aspirin AdvReac Unknown Verified 09/20/17 14:14 lisinopril AdvReac Angioedema Verified 03/15/19 13:06 ED Review of Systems ROS: Stated complaint: DIARRHEA Other details as noted in HPI Constitutional: denies: chills, fever Eyes: denies: eye pain, eye discharge, vision change ENT: denies: ear pain, throat pain Respiratory: denies: cough, shortness of breath, wheezing Cardiovascular: denies: chest pain, palpitations Endocrine: no symptoms reported Gastrointestinal: denies: abdominal pain, nausea, diarrhea Genitourinary: denies: urgency, dysuria Musculoskeletal: denies: back pain, joint swelling, arthralgia Skin: denies: rash, lesions Neurological: denies: headache, weakness, paresthesias Psychiatric: denies: anxiety, depression Hematological/Lymphatic: denies: easy bleeding, easy bruising ED Past Medical Hx - Past Medical History Hx Hypertension: Yes Hx CVA: Yes (L sided deficits) Hx Diabetes: Yes Hx Asthma: Yes Hx HIV: No Additional medical history: Graves dx. gastric ulcers, Constipation - Surgical History Additional Surgical History: knee OR bilat. thyroid OR. robotic heart surgery 10 days ago - Social History Smoking Status: Never Smoker Substance Use Type: None - Medications Home Medications: Home Medications Medication Instructions Recorded Confirmed Last Taken Type Insulin Lispro Protamin/Lispro 0 unit SQ TID 03/15/19 03/15/19 03/15/19 History [HumaLOG Mix 50-50 VIAL] Amlodipine Besylate [Norvasc] 5 mg PO DAILY #30 tablet 03/17/19 Unknown Rx Atorvastatin Calcium [Lipitor] 80 mg PO QHS #30 tablet 03/17/19 Unknown Rx Clopidogrel [Plavix] 75 mg PO QDAY #30 tablet 03/17/19 Unknown Rx Insulin Lispro Protamin/Lispro 25 units SQ TID 30 Days vial 03/17/19 Unknown Rx [HumaLOG Mix 50-50 VIAL] Levothyroxine Sodium [Synthroid] 175 mcg PO QDAY #30 tablet 03/17/19 Unknown Rx Metoprolol [Lopressor TAB] 37.5 mg PO BID #60 tablet 03/17/19 Unknown Rx hydroCHLOROthiazide [HCTZ] 12.5 mg PO QDAY #30 capsule 03/17/19 Unknown Rx Polyethylene Glycol/Elect 4,000 ml PO ONCE PRN #1 bottle 04/06/20 Unknown Rx [Golytely] levoFLOXacin [Levaquin TAB] 750 mg PO QDAY 9 Days #9 tablet 11/26/20 Unknown Rx metroNIDAZOLE [Flagyl TAB] 500 mg PO Q8HR 10 Days #29 tablet 11/26/20 Unknown Rx ED Physical Exam - General General appearance: alert, in no apparent distress - Head Head exam: Present: atraumatic, normocephalic - Eye Eye exam: Present: normal appearance - ENT ENT exam: Present: mucous membranes moist - Neck Neck exam: Present: normal inspection - Respiratory Respiratory exam: Present: normal lung sounds bilaterally. Absent: respiratory distress - Cardiovascular Cardiovascular Exam: Present: regular rate, normal rhythm - GI/Abdominal GI/Abdominal exam: Present: soft, normal bowel sounds - Rectal Rectal exam: Present: deferred - Extremities Exam Extremities exam: Present: normal inspection - Back Exam Back exam: Present: normal inspection - Neurological Exam Neurological exam: Present: alert, oriented X3 - Psychiatric Psychiatric exam: Present: normal affect, normal mood - Skin Skin exam: Present: warm, dry, intact, normal color. Absent: rash ED Course Vital Signs 11/26/20 11/26/20 11/26/20 08:30 08:36 11:17 Temperature 98.7 F 98.7 F Pulse Rate 94 H 94 H 96 H Respiratory 17 17 18 Rate Blood Pressure 156/84 Blood Pressure 156/84 157/79 [Left] O2 Sat by Pulse 98 98 97 Oximetry - Reevaluation(s) Reevaluation #1: 11/26/20 13:13 Patient treated with levaquin, flagyl, and lomotil PO. On discharge patient in NAD. ABD soft, nontender. 11/26/20 13:15 ED Medical Decision Making - Lab Data Vital Signs 11/26/20 11/26/20 11/26/20 08:30 08:36 11:17 Temperature 98.7 F 98.7 F Pulse Rate 94 H 94 H 96 H Respiratory 17 17 18 Rate Blood Pressure 156/84 Blood Pressure 156/84 157/79 [Left] O2 Sat by Pulse 98 98 97 Oximetry - Radiology Data Radiology results: report reviewed <HTML><META HTTP-EQUIV="content-type" CONTENT="text/html;charset=utf-8"> [facility] [address] [place] [address] Cat Scan Report Signed Patient: HAKAN URIBE MR#: [id number] : 1940 Acct:[id number] Age/Sex: 80 / M ADM Date: 11/26/20 Loc: ED Attending Dr: Ordering Physician: WISAM EL MD Date of Service: 11/26/20 Procedure(s): CT abdomen pelvis wo con Accession Number(s): [id number] cc: WISAM EL MD CT ABDOMEN AND PELVIS WITHOUT CONTRAST INDICATION / CLINICAL INFORMATION: diverticulitis. TECHNIQUE: Axial CT images were obtained through the abdomen and pelvis without IV contrast. All CT scans at this location are performed using CT dose reduction for ALARA by means of automated exposure control. COMPARISON: 07/24/2018 FINDINGS: LOWER CHEST: Atelectasis noted in the lingula. Moderate coronary artery calcifications. LIVER: No significant abnormality. GALLBLADDER: No significant abnormality. BILE DUCTS: No significant abnormality. PANCREAS: No significant abnormality. SPLEEN: No significant abnormality. ADRENALS: No significant abnormality. RIGHT KIDNEY / URETER: No significant abnormality. LEFT KIDNEY / URETER: 2.3 cm parapelvic cyst on the left. STOMACH / SMALL BOWEL: Large hiatal hernia. COLON: Moderate sized left inguinal hernia containing fat and sigmoid colon. Sigmoid colon demonstrates diverticulosis with mild concentric mural thickening and pericolonic fat stranding of the segment exiting the hernia sac. No significant fluid or inflammation is noted within the hernia sac. No evidence of perforation or pericolonic abscess. Abundant fecal material noted at the rectal vault. APPENDIX: No significant abnormality. PERITONEUM: No free fluid. No free air. No fluid collection. LYMPH NODES: No significant adenopathy. AORTA / ARTERIES: Mild atherosclerotic calcification without acute abnormality. IVC / VEINS: No significant abnormality. URINARY BLADDER: Small right inguinal hernia contains fat and a small portion of the dome of the bladder. REPRODUCTIVE ORGANS: No significant abnormality. ADDITIONAL FINDINGS: None. SKELETAL SYSTEM: Diffuse osteopenia. Moderate/severe spondylosis throughout the visualized spine. No aggressive osseous lesions. Advanced bilateral hip arthrosis. IMPRESSION: 1. Mild sigmoid diverticulitis involving the sigmoid segment just outside of and distal to the left inguinal hernia sac. 2. Left inguinal hernia containing sigmoid colon and fat. No significant inflammatory changes or fluid are noted within the hernia sac. 3. Right inguinal hernia contains fat and small portion of the dome of the bladder. 4. Large hiatal hernia. Signer Name: Saud Gutierrez MD Signed: 11/26/2020 9:47 AM Workstation Name: [id number] Transcribed By: Dictated By: SAUD GUTIERREZ Electronically Authenticated By: SAUD GUTIERREZ Signed Date/Time: 11/26/20 7734 Critical care attestation.: If time is entered above; I have spent that time in minutes in the direct care of this critically ill patient, excluding procedure time. ED Disposition Clinical Impression: Diverticulitis Disposition: DC-01 TO HOME OR SELFCARE Is pt being admited?: No Condition: Stable Instructions: Diverticulitis Prescriptions: metroNIDAZOLE [Flagyl TAB] 500 mg PO Q8HR 10 Days #29 tablet levoFLOXacin [Levaquin TAB] 750 mg PO QDAY 9 Days #9 tablet Referrals: PRIMARY CARE, [Primary Care Provider] - 3-5 Days
--- NOTE | 2020-11-26 09:51 | Cat Scan Report ---
CT ABDOMEN AND PELVIS WITHOUT CONTRAST INDICATION / CLINICAL INFORMATION: diverticulitis. TECHNIQUE: Axial CT images were obtained through the abdomen and pelvis without IV contrast. All CT scans at [facility] location are performed using CT dose reduction for ALARA by means of automated exposure control. COMPARISON: 07/24/2018 FINDINGS: LOWER CHEST: Atelectasis noted in the lingula. Moderate coronary artery calcifications. LIVER: No significant abnormality. GALLBLADDER: No significant abnormality. BILE DUCTS: No significant abnormality. PANCREAS: No significant abnormality. SPLEEN: No significant abnormality. ADRENALS: No significant abnormality. RIGHT KIDNEY / URETER: No significant abnormality. LEFT KIDNEY / URETER: 2.3 cm parapelvic cyst on the left. STOMACH / SMALL BOWEL: Large hiatal hernia. COLON: Moderate sized left inguinal hernia containing fat and sigmoid colon. Sigmoid colon demonstrat es diverticulosis with mild concentric mural thickening and pericolonic fat stranding of the segment exiting the hernia sac. No significant fluid or inflammation is noted within the hernia sac. No evide nce of perforation or pericolonic abscess. Abundant fecal material noted at the rectal vault. APPENDIX: No significant abnormality. PERITONEUM: No free fluid. No free air. No fluid collection. LYMPH NODES: No significant adenopathy. AORTA / ARTERIES: Mild atherosclerotic calcification without acute abnormality. IVC / VEINS: No significant abnormality. URINARY BLADDER: Small right inguinal hernia contains fat and a small portion of the dome of the blad bailee. REPRODUCTIVE ORGANS: No significant abnormality. ADDITIONAL FINDINGS: None. SKELETAL SYSTEM: Diffuse osteopenia. Moderate/severe spondylosis throughout the visualized spine. No aggressive osseous lesions. Advanced bilateral hip arthrosis. IMPRESSION: 1. Mild sigmoid diverticulitis involving the sigmoid segment just outside of and distal to the left i nguinal hernia sac. 2. Left inguinal hernia containing sigmoid colon and fat. No significant inflammatory changes or flui d are noted within the hernia sac. 3. Right inguinal hernia contains fat and small portion of the dome of the bladder. 4. Large hiatal hernia. Signer Name: Saud Thomson MD Signed: 11/26/2020 9:47 AM Workstation Name: [id number]
[2020-11-26] MEDS ORDERED: levoFLOXacin 750 MG TAB PO ONE (10:02)
[2020-11-26] MEDS ORDERED: DIPHENOXYLATE/ATROPINE TAB PO ONE (10:03)
[2020-11-26] MEDS ORDERED: metroNIDAZOLE 500 MG TAB PO ONE (10:03)
[2020-11-26 11:18] VITALS: BP 157/79
== END 2020-11-26 15:12 | disposition home or self-care (01) ==
LOC: ED 08:03
DX: K57.92 Diverticulitis of intestine, part unspecified, without perforation or abscess without bleeding (principal); I10 Essential (primary) hypertension; E11.9 Type 2 diabetes mellitus without complications; J45.909 Unspecified asthma, uncomplicated; Z98.890 Other specified postprocedural states; Z86.73 Personal history of transient ischemic attack (TIA), and cerebral infarction without residual deficits; Z79.4 Long term (current) use of insulin; Z79.899 Other long term (current) drug therapy; Z88.0 Allergy status to penicillin; Z88.8 Allergy status to other drugs, medicaments and biological substances
CPT/HCPCS: 74176

== ENCOUNTER 2021-08-19 11:02 | Emergency (ER) | payer MEDICARE ==
[2021-08-19 12:27] LABS: BUN/Creatinine Ratio 25; Blood Urea Nitrogen 25 mg/dL (9-20); Calcium 9.1 mg/dL (8.4-10.2); Hemolysis Index 6
[2021-08-19 12:28] LABS: Basophils # (Auto) 0.1 K/mm3 (0.0-0.1); Basophils % (Auto) 0.8 % (0.0-1.8); Eosinophils # (Auto) 0.1 K/mm3 (0.0-0.4); Eosinophils % (Auto) 1.9 % (0.0-4.3); Hematocrit 42.8 % (35.5-45.6); Hemoglobin 14.1 gm/dl (11.8-15.2); Lymphocytes # (Auto) 1.5 K/mm3 (1.2-5.4); Lymphocytes % (Auto) 21.4 % (13.4-35.0); Mean Corpuscular HGB Conc 33 % (32-34); Mean Corpuscular Volume 87 fl (84-94); Monocytes # (Auto) 0.7 K/mm3 (0.0-0.8); Monocytes % (Auto) 9.7 % (0.0-7.3); Platelet Count 357 K/mm3 (140-440); Red Cell Distribution Width 14.7 % (13.2-15.2)
[2021-08-19 12:30] LABS: Albumin 3.5 g/dL (3.9-5); Bilirubin,Direct 0.3 mg/dL (0-0.2)
[2021-08-19 12:39] LABS: INR 1.29 (0.87-1.13)
[2021-08-19 12:46] LABS: Bilirubin,Urine NEG (Negative); Blood,Urine NEG (Negative); Color,Urine Yellow (Yellow); Urobilinogen,Urine < 2.0 mg/dL (<2.0)
[2021-08-19 12:49] LABS: RBC,Urine < 1.0 /HPF (0.0-6.0)
[2021-08-19 12:56] LABS: Protein,Urine <15 mg/dL mg/dL (Negative); WBC,Urine > 182.0 /HPF (0.0-6.0)
--- NOTE | 2021-08-19 13:17 | Cat Scan Report ---
CT ABDOMEN AND PELVIS WITHOUT CONTRAST INDICATION / CLINICAL INFORMATION: Abdominal Pain. TECHNIQUE: Axial CT images were obtained through the abdomen and pelvis without IV contrast. All CT scans at th is location are performed using CT dose reduction for ALARA by means of automated exposure control. COMPARISON: CT abdomen and pelvis without contrast from 11/26/2020. FINDINGS: LOWER CHEST: Unchanged, uncomplicated moderate hiatal hernia. No other significant abnormalities. LIVER: No significant abnormality. BILIARY: The gallbladder is unremarkable. No biliary ductal dilatation. PANCREAS: No significant abnormality. SPLEEN: No significant abnormality. ADRENALS: No significant abnormality. KIDNEYS / URETERS: Unchanged left lower renal pole simple cyst measuring 2.4 cm. No other significant abnormalities. GI TRACT: No other significant abnormality of the stomach. No significant abnormality of the small deborah wel. Sigmoid diverticulosis is noted with mild thickening and surrounding fat stranding seen along th e proximal third of the sigmoid colon. Portions of the sigmoid colon are again seen within an unchang ed moderate left inguinal hernia. Fat is also again seen within the hernia without acute inflammatory changes. No other significant abnormality of the colon. The appendix is not visualized. PERITONEUM: No free fluid. No free air. No fluid collection. LYMPH NODES: No significant adenopathy. VASCULATURE: Unchanged moderate atherosclerosis. No other significant abnormality. URINARY BLADDER: A small right inguinal hernia is again seen involving a small portion of the dome of the bladder without associated acute findings. No other significant abnormality of the bladder. REPRODUCTIVE ORGANS: No significant abnormality. ADDITIONAL FINDINGS: None. BONES: No acute findings or other significant interval changes. IMPRESSION: 1. Uncomplicated mild acute sigmoid diverticulitis. 2. No other significant interval changes. Signer Name: Natan Michaels MD Signed: 08/19/2021 1:13 PM Workstation Name: [id number]
--- NOTE | 2021-08-19 14:08 | Emergency Department Report ---
ED Abdominal Pain HPI - General Chief Complaint: Abdominal Pain Stated Complaint: ABDOMINAL PAIN Time Seen by Provider: 08/19/21 12:07 Source: patient, EMS Mode of arrival: Stretcher Limitations: No Limitations - History of Present Illness Initial Comments: 80-year-old male with known history of coronary artery disease, hypertension, diabetes mellitus, recent CVA x3 with residual left-sided weakness presents to the emergency room today complaining of lower abdominal pain. States it is a pressure-like sensation has been present for the past 2 to 3 days. Patient recently was discharged from the hospital with episodes of dizziness which was caused by pulmonary embolus. Patient started on anticoagulation. Patient believes that the suprapubic discomfort is secondary to the hernia that he has had. Patient has a left-sided inguinal hernia. States he does reduce when he lays flat but he states that it is a pressure sensation in this area now. Denies dysuria. Does have some mild constipation. Denies nausea vomiting fevers or chills. Severity scale (0 -10): 5 - Related Data Home Medications Medication Instructions Recorded Confirmed Last Taken Atorvastatin [Lipitor] 80 mg PO QAM 08/02/21 08/19/21 07/29/21 Colostrum, Bovine [Colostrum] 500 mg PO QDAY 08/02/21 08/19/21 07/29/21 Ezetimibe [Zetia] 10 mg PO QDAY 08/02/21 08/19/21 07/29/21 Fenofibrate [Tricor] 145 mg PO QDAY 08/02/21 08/19/21 07/29/21 Metoprolol [Lopressor TAB] 50 mg PO QDAY 08/02/21 08/19/21 07/29/21 Multivit-Min/FA/Lycopen/Lutein 1 each PO QDAY 08/02/21 08/19/21 07/29/21 [Centrum Silver Tablet] Omeprazole 40 mg PO BID 08/02/21 08/19/21 07/29/21 hydrALAZINE [Apresoline TAB] 25 mg PO QDAY 08/02/21 08/19/21 07/29/21 Previous Rx's Medication Instructions Recorded Last Taken Type Amlodipine Besylate [Norvasc] 5 mg PO DAILY #30 tablet 03/17/19 07/29/21 Rx Clopidogrel [Plavix] 75 mg PO QDAY #30 tablet 03/17/19 07/29/21 Rx Levothyroxine Sodium [Synthroid] 175 mcg PO QDAY #30 tablet 03/17/19 07/29/21 Rx Apixaban [Eliquis] 0 mg PO . DIR #88 tablet 08/04/21 Unknown Rx Meclizine [Antivert] 12.5 mg PO Q8H PRN #30 tablet 08/04/21 Unknown Rx Ciprofloxacin HCl 500 mg PO BID #20 tablet 08/19/21 Unknown Rx Phenazopyridine [Pyridium] 200 mg PO BID #6 tab 08/19/21 Unknown Rx Allergies Allergy/AdvReac Type Severity Reaction Status Date / Time codeine Allergy Itching, Verified 08/02/21 15:05 fainting Iodinated Contrast Media Allergy Anaphylaxis Verified 08/02/21 15:05 [Iodinated Contrast- Oral and IV Dye] penicillin Allergy Rash, Verified 08/02/21 15:05 itching, fainting aspirin AdvReac history of Verified 08/02/21 15:05 stomach ulcer lisinopril AdvReac Angioedema Verified 08/02/21 15:05 ED Review of Systems ROS: Stated complaint: ABDOMINAL PAIN Other details as noted in HPI Comment: All other systems reviewed and negative ED Past Medical Hx - Past Medical History Hx Hypertension: Yes Hx CVA: Yes (L sided deficits) Hx Diabetes: Yes Hx Asthma: Yes Hx HIV: No Additional medical history: CAD, Graves dx. gastric ulcers, Constipation - Surgical History Additional Surgical History: knee OR bilat. thyroid OR. robotic heart surgery 10 days ago - Social History Smoking Status: Unknown if ever smoked - Medications Home Medications: Home Medications Medication Instructions Recorded Confirmed Last Taken Type Amlodipine Besylate [Norvasc] 5 mg PO DAILY #30 tablet 03/17/19 08/19/21 07/29/21 Rx Clopidogrel [Plavix] 75 mg PO QDAY #30 tablet 03/17/19 08/19/21 07/29/21 Rx Levothyroxine Sodium [Synthroid] 175 mcg PO QDAY #30 tablet 03/17/19 08/19/21 1 09/28/20 Rx Atorvastatin [Lipitor] 80 mg PO QAM 08/02/21 08/19/21 07/29/21 History Colostrum, Bovine [Colostrum] 500 mg PO QDAY 11/08/19/21 07/29/21 History Ezetimibe [Zetia] 10 mg PO QDAY 08/02/21 08/19/21 07/29/21 History Fenofibrate [Tricor] 145 mg PO QDAY 08/02/21 08/19/21 07/29/21 History Metoprolol [Lopressor TAB] 50 mg PO QDAY 08/02/21 08/19/21 07/29/21 History Multivit-Min/FA/Lycopen/Lutein 1 each PO QDAY 08/02/21 08/19/21 07/29/21 History [Centrum Silver Tablet] Omeprazole 40 mg PO BID 08/02/21 08/19/21 07/29/21 History hydrALAZINE [Apresoline TAB] 25 mg PO QDAY 08/02/21 08/19/21 07/29/21 History Apixaban [Eliquis] 0 mg PO . DIR #88 tablet 08/04/21 08/19/21 Unknown Rx Meclizine [Antivert] 12.5 mg PO Q8H PRN #30 tablet 08/04/21 08/19/21 Unknown Rx Ciprofloxacin HCl 500 mg PO BID #20 tablet 08/19/21 Unknown Rx Phenazopyridine [Pyridium] 200 mg PO BID #6 tab 08/19/21 Unknown Rx ED Physical Exam - General Limitations: No Limitations General appearance: alert, in no apparent distress - Head Head exam: Present: atraumatic, normocephalic - Eye Eye exam: Present: normal appearance - ENT ENT exam: Present: mucous membranes moist - Neck Neck exam: Present: normal inspection - Respiratory Respiratory exam: Present: normal lung sounds bilaterally. Absent: respiratory distress, wheezes, rales - Cardiovascular Cardiovascular Exam: Present: regular rate, normal rhythm. Absent: systolic murmur, diastolic murmur, rubs, gallop - GI/Abdominal GI/Abdominal exam: Present: soft, tenderness (Mild suprapubic discomfort), normal bowel sounds, hernia (Reducible left-sided inguinal hernia). Absent: distended, guarding, rebound, rigid - Rectal Rectal exam: Present: deferred - Extremities Exam Extremities exam: Present: normal inspection - Back Exam Back exam: Present: normal inspection - Neurological Exam Neurological exam: Present: alert, oriented X3 - Psychiatric Psychiatric exam: Present: normal affect, normal mood - Skin Skin exam: Present: warm, dry, intact, normal color. Absent: rash ED Course Vital Signs 08/19/21 08/19/21 08/19/21 11:13 11:28 11:29 Temperature 98.6 F Pulse Rate 98 H Respiratory 18 Rate Blood Pressure Blood Pressure 152/81 [Right] O2 Sat by Pulse 98 100 98 Oximetry 08/19/21 11:30 Temperature Pulse Rate Respiratory Rate Blood Pressure 145/82 Blood Pressure [Right] O2 Sat by Pulse 100 Oximetry ED Medical Decision Making - Lab Data Result diagrams: 08/19/21 11:44 08/19/21 11:44 Lab Results 08/19/21 08/19/21 08/19/21 Range/Units 11:44 11:44 11:44 WBC 7.2 (4.5-11.0) K/mm3 RBC 4.90 (3.65-5.03) M/mm3 Hgb 14.1 (11.8-15.2) gm/dl Hct 42.8 (35.5-45.6) % MCV 87 (84-94) fl MCH 29 (28-32) pg MCHC 33 (32-34) % RDW 14.7 (13.2-15.2) % Plt Count 357 (140-440) K/mm3 Lymph % (Auto) 21.4 (13.4-35.0) % [place] % (Auto) 9.7 H (0.0-7.3) % Eos % (Auto) 1.9 (0.0-4.3) % Baso % (Auto) 0.8 (0.0-1.8) % Lymph # (Auto) 1.5 (1.2-5.4) K/mm3 [place] # (Auto) 0.7 (0.0-0.8) K/mm3 Eos # (Auto) 0.1 (0.0-0.4) K/mm3 Baso # (Auto) 0.1 (0.0-0.1) K/mm3 Seg Neutrophils % 66.2 (40.0-70.0) % Seg Neutrophils # 4.8 (1.8-7.7) K/mm3 PT 17.4 H (12.2-14.9) Sec. INR 1.29 H (0.87-1.13) Sodium 140 (137-145) mmol/L Potassium 3.7 (3.6-5.0) mmol/L Chloride 102.2 (98-107) mmol/L Carbon Dioxide 22 (22-30) mmol/L Anion Gap 20 mmol/L BUN 25 H (9-20) mg/dL Creatinine 1.0 (0.8-1.3) mg/dL Estimated GFR > 60 ml/min BUN/Creatinine Ratio 25 % Glucose 146 H (75-100) mg/dL Calcium 9.1 (8.4-10.2) mg/dL Total Bilirubin (0.1-1.2) mg/dL Direct Bilirubin (0-0.2) mg/dL Indirect Bilirubin mg/dL AST (5-40) units/L ALT (7-56) units/L Alkaline Phosphatase (35-129) units/L Total Protein (6.3-8.2) g/dL Albumin (3.9-5) g/dL Albumin/Globulin Ratio % Amylase (27-131) units/L Lipase (13-60) units/L Urine Color (Yellow) Urine Turbidity (Clear) Urine pH (5.0-7.0) Ur Specific [place] (1.003-1.030) Urine Protein (Negative) mg/dL Urine Glucose (UA) (Negative) mg/dL Urine Ketones (Negative) mg/dL Urine Blood (Negative) Urine Nitrite (Negative) Urine Bilirubin (Negative) Urine Urobilinogen (<2.0) mg/dL Ur Leukocyte Esterase (Negative) Urine WBC (Auto) (0.0-6.0) /HPF Urine RBC (Auto) (0.0-6.0) /HPF U Epithel Cells (Auto) (0-13.0) /HPF Urine WBC Clumps /HPF 08/19/21 08/19/21 Range/Units 11:44 12:36 WBC (4.5-11.0) K/mm3 RBC (3.65-5.03) M/mm3 Hgb (11.8-15.2) gm/dl Hct (35.5-45.6) % MCV (84-94) fl MCH (28-32) pg MCHC (32-34) % RDW (13.2-15.2) % Plt Count (140-440) K/mm3 Lymph % (Auto) (13.4-35.0) % [place] % (Auto) (0.0-7.3) % Eos % (Auto) (0.0-4.3) % Baso % (Auto) (0.0-1.8) % Lymph # (Auto) (1.2-5.4) K/mm3 [place] # (Auto) (0.0-0.8) K/mm3 Eos # (Auto) (0.0-0.4) K/mm3 Baso # (Auto) (0.0-0.1) K/mm3 Seg Neutrophils % (40.0-70.0) % Seg Neutrophils # (1.8-7.7) K/mm3 PT (12.2-14.9) Sec. INR (0.87-1.13) Sodium (137-145) mmol/L Potassium (3.6-5.0) mmol/L Chloride (98-107) mmol/L Carbon Dioxide (22-30) mmol/L Anion Gap mmol/L BUN (9-20) mg/dL Creatinine (0.8-1.3) mg/dL Estimated GFR ml/min BUN/Creatinine Ratio % Glucose (75-100) mg/dL Calcium (8.4-10.2) mg/dL Total Bilirubin 0.80 (0.1-1.2) mg/dL Direct Bilirubin 0.3 H (0-0.2) mg/dL Indirect Bilirubin 0.5 mg/dL AST 13 (5-40) units/L ALT 7 (7-56) units/L Alkaline Phosphatase 46 (35-129) units/L Total Protein 6.9 (6.3-8.2) g/dL Albumin 3.5 L (3.9-5) g/dL Albumin/Globulin Ratio 1.0 % Amylase 30 (27-131) units/L Lipase 23 (13-60) units/L Urine Color Yellow (Yellow) Urine Turbidity Turbid (Clear) Urine pH 7.0 (5.0-7.0) Ur Specific [place] 1.018 (1.003-1.030) Urine Protein <15 mg/dl (Negative) mg/dL Urine Glucose (UA) Neg (Negative) mg/dL Urine Ketones Tr (Negative) mg/dL Urine Blood Neg (Negative) Urine Nitrite Pos (Negative) Urine Bilirubin Neg (Negative) Urine Urobilinogen < 2.0 (<2.0) mg/dL Ur Leukocyte Esterase Lg (Negative) Urine WBC (Auto) > 182.0 H (0.0-6.0) /HPF Urine RBC (Auto) < 1.0 (0.0-6.0) /HPF U Epithel Cells (Auto) 2.0 (0-13.0) /HPF Urine WBC Clumps 3+ /HPF - Medical Decision Making Patient is hernia is reducible is flat with him laying down. Do not believe th is is the cause of the patient's discomfort. Urinalysis was positive for UTI. Patient started on Cipro and will be discharged home medication for symptomatic relief. Critical care attestation.: If time is entered above; I have spent that time in minutes in the direct care of this critically ill patient, excluding procedure time. ED Disposition Clinical Impression: Acute cystitis, Inguinal hernia Disposition: 01 HOME / SELF CARE / HOMELESS Is pt being admited?: No Does the pt Need Aspirin: No Condition: Stable Instructions: Inguinal Hernia, Adult, [id number], Urinary Tract Infection, Adult Referrals: PRIMARY CARE, [Primary Care Provider] - 3-5 Days Time of Disposition: 14:14
[2021-08-19 22:30] VITALS: BP 107/76
== END 2021-08-19 22:36 | disposition home or self-care (01) ==
LOC: ED 11:02
DX: N30.00 Acute cystitis without hematuria (principal); K40.90 Unilateral inguinal hernia, without obstruction or gangrene, not specified as recurrent; I10 Essential (primary) hypertension; I25.10 Atherosclerotic heart disease of native coronary artery without angina pectoris; Z86.73 Personal history of transient ischemic attack (TIA), and cerebral infarction without residual deficits; E11.8 Type 2 diabetes mellitus with unspecified complications; J45.909 Unspecified asthma, uncomplicated; E05.00 Thyrotoxicosis with diffuse goiter without thyrotoxic crisis or storm; Z88.5 Allergy status to narcotic agent; Z91.041 Radiographic dye allergy status; Z88.0 Allergy status to penicillin; Z88.8 Allergy status to other drugs, medicaments and biological substances; Z98.890 Other specified postprocedural states
CPT/HCPCS: 36415; 74176; 80048; 80076; 81001; 82150; 83690; 85025; 85610; 86850; 86900; 86901; 99284

== ENCOUNTER 2021-09-17 08:38 | Emergency (ER) | payer MEDICARE ==
[2021-09-17] MEDS ORDERED: HYDROmorphone 1 MG/1 ML INJ IV ONE (09:11)
[2021-09-17] MEDS ORDERED: diphenhydrAMINE 50 MG/ML VIAL IV ONE (09:11)
[2021-09-17] MEDS ORDERED: ONDANSETRON 4 MG/2 ML INJ IV ONE (09:11)
--- NOTE | 2021-09-17 09:14 | Emergency Department Report ---
ED Abdominal Pain HPI - General Chief Complaint: Abdominal Pain Stated Complaint: HERNIA Time Seen by Provider: 09/17/21 09:00 Source: patient Mode of arrival: Stretcher Limitations: No Limitations - History of Present Illness Initial Comments: 80-year-old male with known history of coronary artery disease, hypertension, diabetes mellitus, recent CVA x3 with residual left-sided weakness, and pulmonary embolism diagnosed in July currently on Eliquis presents to the hospital complaining of recurrent left inguinal hernia. Patient was seen here August 19 for same symptoms. This document by ED physician that left inguinal hernia was reducible while lying supine CT revealed left inguinal hernia containing sigmoid colon and fat without inflammation or fluid. This is similar to his CT performed on November 26, 2020. patient states hernia reoccurred this morning and is painful and does not reduce when lying supine. Denies nausea, vomiting, or fever. Last bowel movement was yesterday. During recent ED visit he was also treated for UTI and completed course of treatment. Currently denies dysuria. Patient has been taking Imodium due to frequent bowel movement - Related Data Home Medications Medication Instructions Recorded Confirmed Last Taken Atorvastatin [Lipitor] 80 mg PO QAM 08/02/21 08/19/21 07/29/21 Colostrum, Bovine [Colostrum] 500 mg PO QDAY 08/02/21 08/19/21 07/29/21 Ezetimibe [Zetia] 10 mg PO QDAY 08/02/21 08/19/21 07/29/21 Fenofibrate [Tricor] 145 mg PO QDAY 08/02/21 08/19/21 07/29/21 Metoprolol [Lopressor TAB] 50 mg PO QDAY 08/02/21 08/19/21 07/29/21 Multivit-Min/FA/Lycopen/Lutein 1 each PO QDAY 08/02/21 08/19/21 07/29/21 [Centrum Silver Tablet] Omeprazole 40 mg PO BID 08/02/21 08/19/21 07/29/21 hydrALAZINE [Apresoline TAB] 25 mg PO QDAY 08/02/21 08/19/21 07/29/21 Previous Rx's Medication Instructions Recorded Last Taken Type Amlodipine Besylate [Norvasc] 5 mg PO DAILY #30 tablet 03/17/19 07/29/21 Rx Clopidogrel [Plavix] 75 mg PO QDAY #30 tablet 03/17/19 07/29/21 Rx Levothyroxine Sodium [Synthroid] 175 mcg PO QDAY #30 tablet 03/17/19 07/29/21 Rx Apixaban [Eliquis] 0 mg PO . DIR #88 tablet 08/04/21 Unknown Rx Meclizine [Antivert] 12.5 mg PO Q8H PRN #30 tablet 08/04/21 Unknown Rx Ciprofloxacin HCl 500 mg PO BID #20 tablet 08/19/21 Unknown Rx Phenazopyridine [Pyridium] 200 mg PO BID #6 tab 08/19/21 Unknown Rx Nitrofurantoin [place]/M-Cryst 100 mg PO Q12HR #14 capsule 09/17/21 Unknown Rx [Macrobid CAP] Allergies Allergy/AdvReac Type Severity Reaction Status Date / Time codeine Allergy Itching, Verified 08/02/21 15:05 fainting Iodinated Contrast Media Allergy Anaphylaxis Verified 08/02/21 15:05 [Iodinated Contrast- Oral and IV Dye] penicillin Allergy Rash, Verified 08/02/21 15:05 itching, fainting aspirin AdvReac history of Verified 08/02/21 15:05 stomach ulcer lisinopril AdvReac Angioedema Verified 08/02/21 15:05 ED Review of Systems ROS: Stated complaint: HERNIA Other details as noted in HPI ED Past Medical Hx - Past Medical History Previous Medical History?: Yes Hx Hypertension: Yes Hx CVA: Yes (L sided deficits) Hx Diabetes: Yes Hx Pulmonary Embolism: Yes (July 2021) Hx Asthma: Yes Hx HIV: No Additional medical history: CAD, Graves dx. gastric ulcers, Constipation - Surgical History Past Surgical History?: Yes Additional Surgical History: knee OR bilat. thyroid OR. robotic heart surgery 10 days ago - Social History Smoking Status: Never Smoker Substance Use Type: None - Medications Home Medications: Home Medications Medication Instructions Recorded Confirmed Last Taken Type Amlodipine Besylate [Norvasc] 5 mg PO DAILY #30 tablet 03/17/19 08/19/21 07/29/21 Rx Clopidogrel [Plavix] 75 mg PO QDAY #30 tablet 03/17/19 08/19/21 07/29/21 Rx Levothyroxine Sodium [Synthroid] 175 mcg PO QDAY #30 tablet 03/17/19 08/19/21 07/29/21 Rx Atorvastatin [Lipitor] 80 mg PO QAM 08/02/21 08/19/21 07/29/21 History Colostrum, Bovine [Colostrum] 500 mg PO QDAY 08/02/21 08/19/21 07/29/21 History Ezetimibe [Zetia] 10 mg PO QDAY 08/02/21 08/19/21 07/29/21 History Fenofibrate [Tricor] 145 mg PO QDAY 08/02/21 08/19/21 07/29/21 History Metoprolol [Lopressor TAB] 50 mg PO QDAY 08/02/21 08/19/21 07/29/21 History Multivit-Min/FA/Lycopen/Lutein 1 each PO QDAY 08/02/21 08/19/21 07/29/21 History [Centrum Silver Tablet] Omeprazole 40 mg PO BID 08/02/21 08/19/21 07/29/21 History hydrALAZINE [Apresoline TAB] 25 mg PO QDAY 08/02/21 08/19/21 07/29/21 History Apixaban [Eliquis] 0 mg PO . DIR #88 tablet 08/04/21 08/19/21 Unknown Rx Meclizine [Antivert] 12.5 mg PO Q8H PRN #30 tablet 08/04/21 08/19/21 Unknown Rx Ciprofloxacin HCl 500 mg PO BID #20 tablet 08/19/21 Unknown Rx Phenazopyridine [Pyridium] 200 mg PO BID #6 tab 08/19/21 Unknown Rx Nitrofurantoin [place]/M-Cryst 100 mg PO Q12HR #14 capsule 09/17/21 Unknown Rx [Macrobid CAP] ED Physical Exam - General Limitations: No Limitations - Other Other exam information: General: No acute distress Head: Atraumatic Eyes: normal appearance ENT: Moist mucous membranes Neck: Normal appearance, no midline tenderness Chest: Clear to auscultation bilaterally CV: Regular rate and rhythm Abdomen: Soft, normal bowel sounds, left inguinal hernia noted not reducible to palpation Back: Normal inspection Extremity: Normal inspection, full range of motion Neuro: Alert O x 3, no facial asymmetry, speech clear Psych: Appropriate behavior Skin: No rash ED Course Vital Signs 09/17/21 09/17/21 09/17/21 08:43 08:46 11:30 Temperature 98.2 F Temperature [ 98 F Intra-Procedure ] Temperature [ Post-Procedure] Pulse Rate 76 Pulse Rate [ 91 H Intra-Procedure ] Pulse Rate [ Post-Procedure] Respiratory 16 Rate Respiratory 16 Rate [Intra- Procedure] Respiratory Rate [Post- Procedure] Blood Pressure 109/94 [Intra- Procedure] Blood Pressure 145/97 [Left] Blood Pressure [Post-Procedure ] O2 Sat by Pulse 100 96 Oximetry O2 Sat by Pulse Oximetry [ Intra-Procedure ] 09/17/21 09/17/21 09/17/21 11:39 11:54 12:04 Temperature Temperature [ 99 F Intra-Procedure ] Temperature [ 98.5 F 98.2 F Post-Procedure] Pulse Rate Pulse Rate [ 91 H Intra-Procedure ] Pulse Rate [ 87 83 Post-Procedure] Respiratory Rate Respiratory 16 Rate [Intra- Procedure] Respiratory 16 16 Rate [Post- Procedure] Blood Pressure 148/74 [Intra- Procedure] Blood Pressure [Left] Blood Pressure 150/79 132/103 [Post-Procedure ] O2 Sat by Pulse Oximetry O2 Sat by Pulse 100 Oximetry [ Intra-Procedure ] 09/17/21 09/17/21 09/17/21 12:06 12:26 14:03 Temperature Temperature [ Intra-Procedure ] Temperature [ Post-Procedure] Pulse Rate 87 85 86 Pulse Rate [ Intra-Procedure ] Pulse Rate [ Post-Procedure] Respiratory 16 16 10 L Rate Respiratory Rate [Intra- Procedure] Respiratory Rate [Post- Procedure] Blood Pressure [Intra- Procedure] Blood Pressure 148/74 140/76 146/71 [Left] Blood Pressure [Post-Procedure ] O2 Sat by Pulse 100 95 99 Oximetry O2 Sat by Pulse Oximetry [ Intra-Procedure ] - Reevaluation(s) Reevaluation #1: 09/17/21 09:18 Initially attempted to reduce left inguinal hernia with patient lying supine however, it is too painful. Patient endorses allergy to codeine and morphine which both cause itching without airway symptoms. Patient is unsure if he has had Dilaudid. Patient will be treated with Benadryl and Dilaudid 0.5 mg and observed for reaction and attempt to medicate patient prior to hernia reduction attempt 09/17/21 11: 44 Conscious sedation with ketamine was performed. Pressure and ice pack applied. I was able to partially reduce hernia with reduction in size for persistent swelling. 09/17/21 14:00 Patient reports improvement in pain and he feels like the hernia is smaller in size compared to arrival - Consultations Consultation #1: 09/17/21 10:22 Case was discussed with Dr. Price who recommends transferring patient if hernia is not reducible since we do not have OR capabilities due to lack of staffing I attempted transfer after failed reduction attempt 13:26 [facility] on diversion 14:00 Dr Rucker at [facility] (surgeon) on diversion. Rec Surgeon come to evaluate pt since it does not seem like pt requires emergent surgery at this time 14:04 case we discussed with Dr. Price who will come to the ED for evaluation but states her recommendation for transfer for transfer will likely remain 14:40 No beds at [place] 14:50 No beds at [facility] also on diversion 14:55 awaiting call back from Dr Thomson with surgery at [place], no beds now but possible bed in 10-15 hours 15:15 Dr PRICE EVALUATED PT AT THE BEDSIDE and since pt feels better and is asymptomatic pt may be d/stephanie with outpt f/u therefore transfer attempts discontinued - Procedure Description Procedures done: Left inguinal hernia reduction attempt. Unsuccessful reduction attempt with IV Dilaudid and bandage. Moderate sedation then performed with more aggressive reduction attempt. Ice pack used to reduce swelling with pressure placed at hernia area and attempts to reduce hernia through defect. Hernia partially reduced compared to initial presentation. - Moderate Sedation ASA Class: III Mallampati Airway Score: 2 Preparation: radiation monitor applied Ketamine: IV Ketamine Dose: 91 Complications: none Interventions: oxygen applied Patient Tolerated Procedure: well Additional Comments: procedure start time 11:25am with meds and reduction attempt. pt observed and alert at 12:04p ED Medical Decision Making - Lab Data Result diagrams: 09/17/21 09:26 09/17/21 09:26 Lab Results 09/17/21 09/17/21 09/17/21 Range/Units 09:26 09:26 10:07 WBC 9.3 (4.5-11.0) K/mm3 RBC 4.63 (3.65-5.03) M/mm3 Hgb 12.9 (11.8-15.2) gm/dl Hct 40.2 (35.5-45.6) % MCV 87 (84-94) fl MCH 28 (28-32) pg MCHC 32 (32-34) % RDW 15.5 H (13.2-15.2) % Plt Count 371 (140-440) K/mm3 Lymph % (Auto) 28.5 (13.4-35.0) % [place] % (Auto) 10.7 H (0.0-7.3) % Eos % (Auto) 1.8 (0.0-4.3) % Baso % (Auto) 0.6 (0.0-1.8) % Lymph # (Auto) 2.7 (1.2-5.4) K/mm3 [place] # (Auto) 1.0 H (0.0-0.8) K/mm3 Eos # (Auto) 0.2 (0.0-0.4) K/mm3 Baso # (Auto) 0.1 (0.0-0.1) K/mm3 Seg Neutrophils % 58.4 (40.0-70.0) % Seg Neutrophils # 5.4 (1.8-7.7) K/mm3 Sodium 139 (137-145) mmol/L Potassium 4.9 (3.6-5.0) mmol/L Chloride 102.4 (98-107) mmol/L Carbon Dioxide 23 (22-30) mmol/L Anion Gap 19 mmol/L BUN 17 (9-20) mg/dL Creatinine 0.8 (0.8-1.3) mg/dL Estimated GFR > 60 ml/min BUN/Creatinine Ratio 21 % Glucose 87 (75-100) mg/dL POC Glucose (70-105) mg/dL Calcium 9.2 (8.4-10.2) mg/dL Urine Color Yellow (Yellow) Urine Turbidity Cloudy (Clear) Urine pH 7.0 (5.0-7.0) Ur Specific [place] 1.014 (1.003-1.030) Urine Protein 30 mg/dl (Negative) mg/dL Urine Glucose (UA) Neg (Negative) mg/dL Urine Ketones Neg (Negative) mg/dL Urine Blood Neg (Negative) Urine Nitrite Neg (Negative) Urine Bilirubin Neg (Negative) Urine Urobilinogen < 2.0 (<2.0) mg/dL Ur Leukocyte Esterase Neg (Negative) Urine WBC (Auto) 23.0 H (0.0-6.0) /HPF Urine RBC (Auto) 20.0 (0.0-6.0) /HPF U Epithel Cells (Auto) < 1.0 (0-13.0) /HPF Urine WBC Clumps 2+ /HPF Urine Mucus Few /HPF Urine Yeast (Budding) 3+ /HPF 09/17/21 Range/Units 13:47 WBC (4.5-11.0) K/mm3 RBC (3.65-5.03) M/mm3 Hgb (11.8-15.2) gm/dl Hct (35.5-45.6) % MCV (84-94) fl MCH (28-32) pg MCHC (32-34) % RDW (13.2-15.2) % Plt Count (140-440) K/mm3 Lymph % (Auto) (13.4-35.0) % [place] % (Auto) (0.0-7.3) % Eos % (Auto) (0.0-4.3) % Baso % (Auto) (0.0-1.8) % Lymph # (Auto) (1.2-5.4) K/mm3 [place] # (Auto) (0.0-0.8) K/mm3 Eos # (Auto) (0.0-0.4) K/mm3 Baso # (Auto) (0.0-0.1) K/mm3 Seg Neutrophils % (40.0-70.0) % Seg Neutrophils # (1.8-7.7) K/mm3 Sodium (137-145) mmol/L Potassium (3.6-5.0) mmol/L Chloride (98-107) mmol/L Carbon Dioxide (22-30) mmol/L Anion Gap mmol/L BUN (9-20) mg/dL Creatinine (0.8-1.3) mg/dL Estimated GFR ml/min BUN/Creatinine Ratio % Glucose (75-100) mg/dL POC Glucose 74 (70-105) mg/dL Calcium (8.4-10.2) mg/dL Urine Color (Yellow) Urine Turbidity (Clear) Urine pH (5.0-7.0) Ur Specific [place] (1.003-1.030) Urine Protein (Negative) mg/dL Urine Glucose (UA) (Negative) mg/dL Urine Ketones (Negative) mg/dL Urine Blood (Negative) Urine Nitrite (Negative) Urine Bilirubin (Negative) Urine Urobilinogen (<2.0) mg/dL Ur Leukocyte Esterase (Negative) Urine WBC (Auto) (0.0-6.0) /HPF Urine RBC (Auto) (0.0-6.0) /HPF U Epithel Cells (Auto) (0-13.0) /HPF Urine WBC Clumps /HPF Urine Mucus /HPF Urine Yeast (Budding) /HPF - Radiology Data Radiology results: report reviewed - Medical Decision Making 81-year male with chronic left inguinal hernia presents to the hospital worsening swelling and pain. As per medical record patient has had multiple CT scans including November and August 19 showing left inguinal hernia. Today's imaging shows that hernia has increased in size and now has some mild inflammation. I have discussed case with general surgeon Dr. Price who will assess patient at the bedside. Unfortunately the OR would not be open until September 20 due to lack of staffing. Transfer to a hospital with surgery capabilities recommended. Unfortunately [facility], [facility], and [facility] are on diversion. Dr. Price did come into the ED to assess patient. Patient states his symptoms improved with ED reduction attempt/partial reduction. Given this improvement in symptoms and after her exam agrees that patient can be discharged with follow-up. Strict instructions to return (or go to the hospital with or capabilities) if symptoms worsen. Patient will be treated for UTI. Patient instructed to stop Imodium due to findings of constipation on his CT Critical Care Time: Yes Critical care time in (mins) excluding proc time.: 60 Critical care attestation.: If time is entered above; I have spent that time in minutes in the direct care of this critically ill patient, excluding procedure time. Critical Care Time: 60 Minutes of critical care time excluding procedures were used in the care of the patient. Multiple calls were needed and attempt to coordinate transfer and consultations ED Disposition Clinical Impression: UTI (urinary tract infection), Constipation Inguinal hernia Qualifiers: Recurrence: recurrent Disposition: 01 HOME / SELF CARE / HOMELESS Is pt being admited?: No Does the pt Need Aspirin: No Condition: Stable Instructions: Inguinal Hernia, Adult, [id number], Urinary Tract Infection, Adult, [id number], Constipation, Adult, [id number] Additional Instructions: Take the medication as prescribed. It is very important that you follow-up with a surgeon to determine appropriate surgical management of your hernia. Stop taking Imodium. Your CAT scan shows significant constipation. Please return if your symptoms worsen as indicated by your discharge instructions Prescriptions: Nitrofurantoin [place]/M-Cryst [Macrobid CAP] 100 mg PO Q12HR #14 capsule Referrals: PRIMARY CARE,MD [Primary Care Provider] - 3-5 Days TRACEE MASSEY DO [Staff Physician] - 3-5 Days Time of Disposition: 15:38
[2021-09-17 10:31] LABS: Basophils # (Auto) 0.1 K/mm3 (0.0-0.1); Basophils % (Auto) 0.6 % (0.0-1.8); Eosinophils # (Auto) 0.2 K/mm3 (0.0-0.4); Eosinophils % (Auto) 1.8 % (0.0-4.3); Hematocrit 40.2 % (35.5-45.6); Hemoglobin 12.9 gm/dl (11.8-15.2); Lymphocytes # (Auto) 2.7 K/mm3 (1.2-5.4); Lymphocytes % (Auto) 28.5 % (13.4-35.0); Mean Corpuscular HGB Conc 32 % (32-34); Mean Corpuscular Volume 87 fl (84-94); Monocytes % (Auto) 10.7 % (0.0-7.3); Platelet Count 371 K/mm3 (140-440); Red Blood Count 4.63 M/mm3 (3.65-5.03); Red Cell Distribution Width 15.5 % (13.2-15.2)
[2021-09-17 10:42] LABS: BUN/Creatinine Ratio 21; Blood Urea Nitrogen 17 mg/dL (9-20); Calcium 9.2 mg/dL (8.4-10.2); Hemolysis Index 80
[2021-09-17] MEDS ORDERED: KETAMINE 500 MG/5 ML VIAL MDV IV ONE (10:42)
[2021-09-17 10:43] LABS: Bilirubin,Urine NEG (Negative); Blood,Urine NEG (Negative); Color,Urine Yellow (Yellow); Mucus,Urine FEW /HPF; Urobilinogen,Urine < 2.0 mg/dL (<2.0)
--- NOTE | 2021-09-17 13:13 | Cat Scan Report ---
CT ABDOMEN AND PELVIS WITHOUT CONTRAST HISTORY: left inguinal hernia s/p reduction attempt. COMPARISON: 08/19/2021 TECHNIQUE: CT images of the abdomen and pelvis were obtained without administration of intravenous co ntrast. All CT scans at this location are performed using CT dose reduction for ALARA by means of au tomated exposure control. FINDINGS: Lungs/bones: Mild lower lobe atelectasis within limits of a noncontrast exam the liver, spleen, adre nal glands, pancreas Abdomen/pelvis: , Gallbladder and upper GI tract appear normal. Hiatal hernia is again seen and may be slightly increased in size. Left renal cyst is again noted. No hydronephrosis. No renal or uretera l stone. There is a left inguinal hernia containing bowel loops. Increased size and number of bowel loops exte nding into this hernia is identified with small surrounding fluid and inflammation. This appears new since prior examination. Constipation seen within the colon. Marked distention of the rectum with fec al material and possible impaction. Mild rectal wall thickening is seen. IMPRESSION: 1. Left inguinal hernia containing bowel loops. Mild inflammation and bowel wall thickening within th e bowel loops in the inguinal hernia appears new since prior examination. An early incarceration karthik ot be completely excluded. 2. Constipation with possible impaction. There is marked thickening of the rectal wall as well. Signer Name: Kaleb Wilder MD Signed: 09/17/2021 1:09 PM Workstation Name: [id number]
--- NOTE | 2021-09-17 15:24 | Consultation ---
History of Present Illness Consult date: 09/17/21 Reason for consult: hernia - History of present illness History of present illness: 81 year old male with a hx of chronic left inguinal hernia (>12 months) presented to ER because he said that it felt bigger and he was having pain. He was seen less than a month ago and discharged from ER when he presented with similar discomfort and was diagnosed with UTI in addition to the hernia. He was placed on antibiotics for the UTI and said his pain resolved. He was feeling 'normal' until yesterday. He denies any n/v, and last passed flatus today, and BM yesterday. Dr. Cho the emergency room physician was able to partially reduce the hernia and the patient says that he no longer has any pain or discomfort. Patient had a CT scan which showed consistent left inguinal hernia from [address] scans, however today scan showed a slight increase in bowel contents. There was also seen to be some mild inflammatory changes. 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) Family history: other Medications and Allergies Allergies Allergy/AdvReac Type Severity Reaction Status Date / Time codeine Allergy Itching, Verified 08/02/21 15:05 fainting Iodinated Contrast Media Allergy Anaphylaxis Verified 08/02/21 15:05 [Iodinated Contrast- Oral and IV Dye] penicillin Allergy Rash, Verified 08/02/21 15:05 itching, fainting aspirin AdvReac history of Verified 08/02/21 15:05 stomach ulcer lisinopril AdvReac Angioedema Verified 08/02/21 15:05 Home Medications Medication Instructions Recorded Confirmed Last Taken Type Amlodipine Besylate [Norvasc] 5 mg PO DAILY #30 tablet 03/17/19 08/19/21 07/29/21 Rx Clopidogrel [Plavix] 75 mg PO QDAY #30 tablet 03/17/19 08/19/21 07/29/21 Rx Levothyroxine Sodium [Synthroid] 175 mcg PO QDAY #30 tablet 03/17/19 08/19/21 07/29/21 Rx Atorvastatin [Lipitor] 80 mg PO QAM 08/02/21 08/19/21 07/29/21 History Colostrum, Bovine [Colostrum] 500 mg PO QDAY 08/02/21 08/19/21 07/29/21 History Ezetimibe [Zetia] 10 mg PO QDAY 08/02/21 08/19/21 07/29/21 History Fenofibrate [Tricor] 145 mg PO QDAY 08/02/21 08/19/21 07/29/21 History Metoprolol [Lopressor TAB] 50 mg PO QDAY 08/02/21 08/19/21 07/29/21 History Multivit-Min/FA/Lycopen/Lutein 1 each PO QDAY 08/02/21 08/19/21 07/29/21 History [Centrum Silver Tablet] Omeprazole 40 mg PO BID 08/02/21 08/19/21 07/29/21 History hydrALAZINE [Apresoline TAB] 25 mg PO QDAY 08/02/21 08/19/21 07/29/21 History Apixaban [Eliquis] 0 mg PO . DIR #88 tablet 08/04/21 08/19/21 Unknown Rx Meclizine [Antivert] 12.5 mg PO Q8H PRN #30 tablet 08/04/21 08/19/21 Unknown Rx Ciprofloxacin HCl 500 mg PO BID #20 tablet 08/19/21 Unknown Rx Phenazopyridine [Pyridium] 200 mg PO BID #6 tab 08/19/21 Unknown Rx Active Meds: Active Medications Levofloxacin/Dextrose (Levaquin 750mg/150ml) 750 mg in 150 mls @ 100 mls/hr IV ONCE ONE; Protocol Stop: 09/17/21 15:54 Review of Systems All systems: negative - Gastrointestinal abdominal pain, constipation, no nausea, no vomiting Exam Vital Signs Temp Pulse Resp BP Pulse Ox 98.2 F 76 16 145/97 100 09/17/21 08:43 09/17/21 08:43 09/17/21 08:43 09/17/21 08:43 09/17/21 08:43 - General physical appearance Positive: well developed, no distress, no pain - Respiratory Positive: normal expansion, normal respiratory effort - Cardiovascular Heart Sounds: Present: S1 & S2 - Extremities Extremities: no ischemia - Abdomen Abdomen: Present: soft. Absent: tender, distended, guarding Hernia: inguinal, other (hernia is soft, non tender and partially reducible with no skin changes) Results - Labs 09/17/21 09:26 09/17/21 09:26 Abnormal lab results 09/17/21 09/17/21 Range/Units 09:26 10:07 RDW 15.5 H (13.2-15.2) % [place] % (Auto) 10.7 H (0.0-7.3) % [place] # (Auto) 1.0 H (0.0-0.8) K/mm3 Urine WBC (Auto) 23.0 H (0.0-6.0) /HPF Diabetes panel 09/17/21 Range/Units 09:26 Sodium 139 (137-145) mmol/L Potassium 4.9 (3.6-5.0) mmol/L Chloride 102.4 (98-107) mmol/L Carbon Dioxide 23 (22-30) mmol/L BUN 17 (9-20) mg/dL Creatinine 0.8 (0.8-1.3) mg/dL Glucose 87 (75-100) mg/dL Calcium 9.2 (8.4-10.2) mg/dL Calcium panel 09/17/21 Range/Units 09:26 Calcium 9.2 (8.4-10.2) mg/dL Pituitary panel 09/17/21 Range/Units 09:26 Sodium 139 (137-145) mmol/L Potassium 4.9 (3.6-5.0) mmol/L Chloride 102.4 (98-107) mmol/L Carbon Dioxide 23 (22-30) mmol/L BUN 17 (9-20) mg/dL Creatinine 0.8 (0.8-1.3) mg/dL Glucose 87 (75-100) mg/dL Calcium 9.2 (8.4-10.2) mg/dL Adrenal panel 09/17/21 Range/Units 09:26 Sodium 139 (137-145) mmol/L Potassium 4.9 (3.6-5.0) mmol/L Chloride 102.4 (98-107) mmol/L Carbon Dioxide 23 (22-30) mmol/L BUN 17 (9-20) mg/dL Creatinine 0.8 (0.8-1.3) mg/dL Glucose 87 (75-100) mg/dL Calcium 9.2 (8.4-10.2) mg/dL - Imaging CT scan - abdomen: report reviewed, image reviewed CT scan - pelvis: report reviewed, image reviewed Assessment and Plan 81-year-old male with chronic left inguinal hernia, which is partially reducible however appears to be back to its baseline status per the patient. Clinically hernia is not obstructing with no gross clinical signs of ischemia at this moment. Patient is afebrile and stable with no leukocytosis. Due to the Covid 19 pandemic at this time in addition to staffing shortages t here is no operating room capabilities for the next 72 hours. At this moment patient is not in need of emergent surgical intervention. Had a long discussion with the patient that if he is able to tolerate diet and he is at his baseline of functioning he does not need to be admitted. Patient was also encouraged to avoid constipation to decrease stress on the hernia with straining. Patient says that he takes laxatives as needed. He is strongly encouraged to follow-up with a surgeon in the near future to get elective repair of this hernia to hopefully avoid incarceration/strangulation. Patient will also need cardiac clearance as he has had a CABG in the last year and is on anticoagulation. Also discussed with patient should his pain or symptoms recur in addition to nausea vomiting patient may need to have emergent/urgent surgery. Patient expressed understanding.
[2021-09-17] MEDS ORDERED: NITROFURANTOIN MONOHYD/M-CRYST 100 MG CAP PO ONE (15:35)
[2021-09-17 16:03] VITALS: BP 125/63
== END 2021-09-17 16:54 | disposition home or self-care (01) ==
LOC: ED 08:38
DX: K40.90 Unilateral inguinal hernia, without obstruction or gangrene, not specified as recurrent (principal); N39.0 Urinary tract infection, site not specified; K59.00 Constipation, unspecified; I10 Essential (primary) hypertension; E11.9 Type 2 diabetes mellitus without complications; J45.909 Unspecified asthma, uncomplicated; Z86.73 Personal history of transient ischemic attack (TIA), and cerebral infarction without residual deficits; Z88.0 Allergy status to penicillin; Z88.6 Allergy status to analgesic agent; Z88.8 Allergy status to other drugs, medicaments and biological substances; Z91.041 Radiographic dye allergy status; Z79.899 Other long term (current) drug therapy
CPT/HCPCS: 36415; 74176; 80048; 81001; 82962; 85025; 87086; 96374; 96375; 99285; J1170; J1200; J2405; J3490

== ENCOUNTER 2021-10-18 17:58 | Emergency (ER) | payer MEDICARE ==
[2021-10-18] MEDS ORDERED: fentaNYL 100 MCG/2 ML INJ IV ONE (18:25)
--- NOTE | 2021-10-18 18:29 | Emergency Department Report ---
ED Abdominal Pain HPI - General Stated Complaint: hernia Time Seen by Provider: 10/18/21 18:23 - History of Present Illness Initial Comments: Patient presents by EMS secondary to a hernia. He has had a chronic inguinal hernia for about a year. He has been seen multiple times because of the hernia. On his last visit, it was partially reduced and returned to baseline. He was not having any symptoms. He was told that he should follow-up for elective aga iorrhaphy. [facility] to [facility]. He was told by the surgeon at the [facility] that they would plan on getting it fixed, but that has not happened. Today, the hernia popped out more. It was more painful than usual. He has had no nausea or vomiting. There is no fevers or chills. There is no history of travel or trauma. The pain is constant and aching. It is worse with palpation of the hernia itself. - Related Data Home Medications Medication Instructions Recorded Confirmed Last Taken Atorvastatin [Lipitor] 80 mg PO QAM 08/02/21 08/19/21 07/29/21 Colostrum, Bovine [Colostrum] 500 mg PO QDAY 08/02/21 08/19/21 07/29/21 Ezetimibe [Zetia] 10 mg PO QDAY 08/02/21 08/19/21 07/29/21 Fenofibrate [Tricor] 145 mg PO QDAY 08/02/21 08/19/21 07/29/21 Metoprolol [Lopressor TAB] 50 mg PO QDAY 08/02/21 08/19/21 07/29/21 Multivit-Min/FA/Lycopen/Lutein 1 each PO QDAY 08/02/21 08/19/21 07/29/21 [Centrum Silver Tablet] Omeprazole 40 mg PO BID 08/02/21 08/19/21 07/29/21 hydrALAZINE [Apresoline TAB] 25 mg PO QDAY 08/02/21 08/19/21 07/29/21 Previous Rx's Medication Instructions Recorded Last Taken Type Amlodipine Besylate [Norvasc] 5 mg PO DAILY #30 tablet 03/17/19 07/29/21 Rx Clopidogrel [Plavix] 75 mg PO QDAY #30 tablet 03/17/19 07/29/21 Rx Levothyroxine Sodium [Synthroid] 175 mcg PO QDAY #30 tablet 03/17/19 07/29/21 Rx Apixaban [Eliquis] 0 mg PO . DIR #88 tablet 08/04/21 Unknown Rx Meclizine [Antivert] 12.5 mg PO Q8H PRN #30 tablet 08/04/21 Unknown Rx Ciprofloxacin HCl 500 mg PO BID #20 tablet 08/19/21 Unknown Rx Phenazopyridine [Pyridium] 200 mg PO BID #6 tab 08/19/21 Unknown Rx Nitrofurantoin [place]/M-Cryst 100 mg PO Q12HR #14 capsule 09/17/21 Unknown Rx [Macrobid CAP] Allergies Allergy/AdvReac Type Severity Reaction Status Date / Time codeine Allergy Itching, Verified 08/02/21 15:05 fainting Iodinated Contrast Media Allergy Anaphylaxis Verified 08/02/21 15:05 [Iodinated Contrast- Oral and IV Dye] penicillin Allergy Rash, Verified 08/02/21 15:05 itching, fainting aspirin AdvReac history of Verified 08/02/21 15:05 stomach ulcer lisinopril AdvReac Angioedema Verified 08/02/21 15:05 ED Review of Systems ROS: Stated complaint: hernia Other details as noted in HPI Comment: All other systems reviewed and negative Constitutional: denies: fever Eyes: denies: eye pain ENT: denies: throat pain Respiratory: denies: cough Cardiovascular: denies: chest pain Endocrine: denies: unexplained weight loss Gastrointestinal: as per HPI Genitourinary: denies: dysuria Musculoskeletal: denies: back pain Skin: denies: rash Neurological: denies: headache Hematological/Lymphatic: denies: easy bruising ED Past Medical Hx - Past Medical History Hx Hypertension: Yes Hx CVA: Yes (L sided deficits) Hx Diabetes: Yes Hx Pulmonary Embolism: Yes (July 2021) Hx Asthma: Yes Hx HIV: No Additional medical history: CAD, Graves dx. gastric ulcers, Constipation - Surgical History Additional Surgical History: knee OR bilat. thyroid OR. robotic heart surgery 10 days ago - Family History Family history: hypertension - Social History Smoking Status: Never Smoker Substance Use Type: None - Medications Home Medications: Home Medications Medication Instructions Recorded Confirmed Last Taken Type Amlodipine Besylate [Norvasc] 5 mg PO DAILY #30 tablet 03/17/19 08/19/21 07/29/21 Rx Clopidogrel [Plavix] 75 mg PO QDAY #30 tablet 03/17/19 08/19/21 07/29/21 Rx Levothyroxine Sodium [Synthroid] 175 mcg PO QDAY #30 tablet 03/17/19 08/19/21 07/29/21 Rx Atorvastatin [Lipitor] 80 mg PO QAM 08/02/21 08/19/21 07/29/21 History Colostrum, Bovine [Colostrum] 500 mg PO QDAY 08/02/21 08/19/21 07/29/21 History Ezetimibe [Zetia] 10 mg PO QDAY 08/02/21 08/19/21 07/29/21 History Fenofibrate [Tricor] 145 mg PO QDAY 08/02/21 08/19/21 07/29/21 History Metoprolol [Lopressor TAB] 50 mg PO QDAY 08/02/21 08/19/21 07/29/21 History Multivit-Min/FA/Lycopen/Lutein 1 each PO QDAY 08/02/21 08/19/21 07/29/21 History [Centrum Silver Tablet] Omeprazole 40 mg PO BID 08/02/21 08/19/21 07/29/21 History hydrALAZINE [Apresoline TAB] 25 mg PO QDAY 08/02/21 08/19/21 07/29/21 History Apixaban [Eliquis] 0 mg PO . DIR #88 tablet 08/04/21 08/19/21 Unknown Rx Meclizine [Antivert] 12.5 mg PO Q8H PRN #30 tablet 08/04/21 08/19/21 Unknown Rx Ciprofloxacin HCl 500 mg PO BID #20 tablet 08/19/21 Unknown Rx Phenazopyridine [Pyridium] 200 mg PO BID #6 tab 08/19/21 Unknown Rx Nitrofurantoin [place]/M-Cryst 100 mg PO Q12HR #14 capsule 09/17/21 Unknown Rx [Macrobid CAP] ED Physical Exam - General Limitations: No Limitations, Language Barrier, Other (Pulse ox noted and normal by EMS) General appearance: alert, in no apparent distress - Head Head exam: Present: atraumatic, normocephalic - Eye Eye exam: Present: normal appearance, EOMI. Absent: scleral icterus - ENT ENT exam: Present: normal orophraynx, normal external ear exam - Neck Neck exam: Present: normal inspection. Absent: meningismus - Respiratory Respiratory exam: Present: normal lung sounds bilaterally. Absent: respiratory distress - Cardiovascular Cardiovascular Exam: Present: regular rate, normal rhythm - GI/Abdominal GI/Abdominal exam: Present: soft. Absent: distended, tenderness - Extremities Exam Extremities exam: Present: normal capillary refill - Back Exam Back exam: Absent: CVA tenderness (R), CVA tenderness (L) - Neurological Exam Neurological exam: Present: alert, oriented X3, CN II-XII intact. Absent: motor sensory deficit - Psychiatric Psychiatric exam: Present: normal affect, normal mood - Skin Skin exam: Present: warm, dry ED Course - Reevaluation(s) Reevaluation #2: 10/18/21 18:28 EMS was met. IV and labs were ordered. Old records reviewed. Reevaluation #3: 10/18/21 20:01 Hernia was easily reduced. We will await labs and then discharge the patient. I have had this discussion with him. He can follow-up with surgery at the [facility] tomorrow. - Procedure Description Procedures done: Procedure note: Hernia reduction. Indication: Left inguinal hernia. Patient was placed in Trendelenburg position. Ice pack of been placed on the left groin hernia. This was left in place approximately 30 minutes. Patient was given fentanyl 50 mics IV. Subsequent to that, slow gentle pressure was applied. The hernia was easily reduced without difficulty. Patient tolerated procedure well. There are no apparent complications. ED Medical Decision Making - Medical Decision Making Patient presented with left inguinal hernia. This is been chronic and recurrent for the patient. This was easily reduced today. I am not concerned for strangulated hernia or incarcerated bowel. Patient had no abdominal tenderness otherwise. He does not have any systemic symptoms of infection. Patient will be treated symptomatically and released. He can follow-up with the [facility] for surgical intervention. We have discussed measures to reduce the hernia at home or prevent the hernia from extruding. Critical Care Time: No Critical care attestation.: If time is entered above; I have spent that time in minutes in the direct care of this critically ill patient, excluding procedure time. ED Disposition Clinical Impression: Left inguinal hernia Disposition: HOME / SELF CARE / HOMELESS Is pt being admited?: No Condition: Stable Instructions: Inguinal Hernia, Adult, [id number] Additional Instructions: Hold pressure in the left groin if you are about to laugh, cough, or sneeze. Avoid constipation as much as possible. Drink plenty of water. Follow-up with the surgeon. Return for problems. Referrals: PRIMARY CARE, [Referring] - 3-5 Days
[2021-10-18 20:08] LABS: Basophils # (Auto) 0.1 K/mm3 (0.0-0.1); Basophils % (Auto) 0.5 % (0.0-1.8); Eosinophils # (Auto) 0.1 K/mm3 (0.0-0.4); Eosinophils % (Auto) 0.5 % (0.0-4.3); Hematocrit 33.2 % (35.5-45.6); Hemoglobin 10.9 gm/dl (11.8-15.2); Lymphocytes # (Auto) 2.7 K/mm3 (1.2-5.4); Lymphocytes % (Auto) 24.9 % (13.4-35.0); Mean Corpuscular HGB Conc 33 % (32-34); Mean Corpuscular Volume 84 fl (84-94); Monocytes # (Auto) 0.9 K/mm3 (0.0-0.8); Monocytes % (Auto) 8.2 % (0.0-7.3); Platelet Count 545 K/mm3 (140-440); Red Blood Count 3.96 M/mm3 (3.65-5.03); Red Cell Distribution Width 15.4 % (13.2-15.2)
[2021-10-18 20:18] LABS: BUN/Creatinine Ratio 17; Blood Urea Nitrogen 17 mg/dL (9-20); Calcium 9.2 mg/dL (8.4-10.2); Hemolysis Index 3
[2021-10-19 01:55] VITALS: BP 109/64
== END 2021-10-19 01:55 | disposition home or self-care (01) ==
LOC: ED 17:58
DX: K40.90 Unilateral inguinal hernia, without obstruction or gangrene, not specified as recurrent (principal); I10 Essential (primary) hypertension; J45.909 Unspecified asthma, uncomplicated; E11.9 Type 2 diabetes mellitus without complications; Z86.73 Personal history of transient ischemic attack (TIA), and cerebral infarction without residual deficits; I25.10 Atherosclerotic heart disease of native coronary artery without angina pectoris; E05.00 Thyrotoxicosis with diffuse goiter without thyrotoxic crisis or storm; Z98.890 Other specified postprocedural states; Z88.5 Allergy status to narcotic agent; Z88.0 Allergy status to penicillin; Z88.8 Allergy status to other drugs, medicaments and biological substances; Z91.041 Radiographic dye allergy status
CPT/HCPCS: 36415; 80048; 85025; 96374; 99283; J3010

== ENCOUNTER 2021-11-10 22:55 | Emergency (ER) | payer MEDICARE ==
[2021-11-10] MEDS ORDERED: ONDANSETRON 4 MG/2 ML INJ IV ONE (23:24)
[2021-11-10] MEDS ORDERED: MORPHINE 4 MG/1 ML INJ IV ONE (23:24)
--- NOTE | 2021-11-10 23:43 | Emergency Department Report ---
ED General Adult HPI - General Chief complaint: Abdominal Pain Stated complaint: Inguinal hernia pain PUI?: No Time Seen by Provider: 11/10/21 23:18 Source: patient, EMS ( EMS documentation not available at time of chart dictation ), RN notes reviewed, old records reviewed Mode of arrival: Stretcher Limitations: No Limitations - History of Present Illness Initial comments: The patient was evaluated in the emergency department for symptoms described in the history of present illness. He/she was evaluated in the context of the global COVID-19 pandemic, which necessitated consideration that the patient might be at risk for infection with the virus that causes COVID-19. Institutional protocols and algorithms that pertain to the evaluation of patients at risk for COVID-19 are in a state of rapid change based on information released by regulatory bodies including the CDC and federal and state organizations. These policies and algorithms were followed during the patient's care in the emergency department. Please note that these policies, procedures and recommendations changed on a rapid basis. The patient is a pleasant 81-year-old gentleman, with a known history of inguinal hernia, which has required manual reduction in the past, presenting to the ER today with a primary complaint of painful left-sided inguinal hernia. Patient reports that he is constipated but passing gas. He denies dysuria, but reports it somewhat difficult to urinate. This patient was seen in this department in August 2021 for similar symptoms, and had manual reduction of a known left-sided inguinal hernia, and was advised by general surgeon Dr. Price to follow-up as an outpatient. Patient states he has followed up at [facility], but reports that secondary to the current Covid pandemic, and his multiple chronic medical comorbidities, he has been having difficulty scheduling elective repair. His symptoms were markedly improved in the emergency room, with administration of morphine, Zofran, manual reduction of left-sided inguinal hernia (patient provided verbal consent for this), and also manual fecal disimpaction (patient also requested/provided consent for this), in addition to a soapsuds enema. -: Gradual, hour(s) Location: abdomen (Left lower quadrant/inguinal region) Radiation: non-radiation Severity scale (0 -10): 8 Quality: aching Consistency: now resolved Improves with: other (Medication and manual reduction) Worsens with: other (Straining and defecated) - Related Data Home Medications Medication Instructions Recorded Confirmed Last Taken Atorvastatin [Lipitor] 80 mg PO QAM 08/02/21 08/19/21 07/29/21 Colostrum, Bovine [Colostrum] 500 mg PO QDAY 08/02/21 08/19/21 07/29/21 Ezetimibe [Zetia] 10 mg PO QDAY 08/02/21 08/19/21 07/29/21 Fenofibrate [Tricor] 145 mg PO QDAY 08/02/21 08/19/21 07/29/21 Metoprolol [Lopressor TAB] 50 mg PO QDAY 08/02/21 08/19/21 07/29/21 Multivit-Min/FA/Lycopen/Lutein 1 each PO QDAY 08/02/21 08/19/21 07/29/21 [Centrum Silver Tablet] Omeprazole 40 mg PO BID 08/02/21 08/19/21 07/29/21 hydrALAZINE [Apresoline TAB] 25 mg PO QDAY 08/02/21 08/19/21 07/29/21 Previous Rx's Medication Instructions Recorded Last Taken Type Amlodipine Besylate [Norvasc] 5 mg PO DAILY #30 tablet 03/17/19 07/29/21 Rx Clopidogrel [Plavix] 75 mg PO QDAY #30 tablet 03/17/19 07/29/21 Rx Levothyroxine Sodium [Synthroid] 175 mcg PO QDAY #30 tablet 03/17/19 07/29/21 Rx Apixaban [Eliquis] 0 mg PO . DIR #88 tablet 08/04/21 Unknown Rx Meclizine [Antivert] 12.5 mg PO Q8H PRN #30 tablet 08/04/21 Unknown Rx Ciprofloxacin HCl 500 mg PO BID #20 tablet 08/19/21 Unknown Rx Phenazopyridine [Pyridium] 200 mg PO BID #6 tab 08/19/21 Unknown Rx Nitrofurantoin [place]/M-Cryst 100 mg PO Q12HR #14 capsule 09/17/21 Unknown Rx [Macrobid CAP] polyethylene glycoL 3350 [Miralax 17 gm PO QDAY #30 packet 11/11/21 Unknown Rx 3350] Allergies Allergy/AdvReac Type Severity Reaction Status Date / Time codeine Allergy Itching, Verified 08/02/21 15:05 fainting Iodinated Contrast Media Allergy Anaphylaxis Verified 08/02/21 15:05 [Iodinated Contrast- Oral and IV Dye] penicillin Allergy Rash, Verified 08/02/21 15:05 itching, fainting aspirin AdvReac history of Verified 08/02/21 15:05 stomach ulcer lisinopril AdvReac Angioedema Verified 08/02/21 15:05 ED Review of Systems ROS: Stated complaint: LOWER ABD PAIN Other details as noted in HPI Constitutional: denies: fever Eyes: denies: eye discharge ENT: denies: epistaxis Respiratory: denies: cough Cardiovascular: denies: chest pain Gastrointestinal: constipation, other (Left inguinal pain). denies: nausea, vomiting, hematemesis, melena, hematochezia Genitourinary: other (Difficulty urinating). denies: dysuria, testicular pain Musculoskeletal: denies: back pain Neurological: weakness (Chronic weakness) Hematological/Lymphatic: denies: easy bleeding ED Past Medical Hx - Past Medical History Previous Medical History?: Yes Hx Hypertension: Yes Hx CVA: Yes (L sided deficits) Hx Diabetes: Yes Hx Pulmonary Embolism: Yes (July 2021) Hx Asthma: Yes Hx HIV: No Additional medical history: CAD, Graves dx. gastric ulcers, Constipation - Surgical History Past Surgical History?: Yes Additional Surgical History: knee OR bilat. thyroid OR. robotic heart surgery 10 days ago - Social History Smoking Status: Never Smoker Substance Use Type: None - Medications Home Medications: Home Medications Medication Instructions Recorded Confirmed Last Taken Type Amlodipine Besylate [Norvasc] 5 mg PO DAILY #30 tablet 03/17/19 08/19/21 07/29/21 Rx Clopidogrel [Plavix] 75 mg PO QDAY #30 tablet 03/17/19 08/19/21 07/29/21 Rx Levothyroxine Sodium [Synthroid] 175 mcg PO QDAY #30 tablet 03/17/19 08/19/21 07/29/21 Rx Atorvastatin [Lipitor] 80 mg PO QAM 08/02/21 08/19/21 07/29/21 History Colostrum, Bovine [Colostrum] 500 mg PO QDAY 08/02/21 08/19/21 07/29/21 History Ezetimibe [Zetia] 10 mg PO QDAY 08/02/21 08/19/21 07/29/21 History Fenofibrate [Tricor] 145 mg PO QDAY 08/02/21 08/19/21 07/29/21 History Metoprolol [Lopressor TAB] 50 mg PO QDAY 08/02/21 08/19/21 07/29/21 History Multivit-Min/FA/Lycopen/Lutein 1 each PO QDAY 08/02/21 08/19/21 07/29/21 History [Centrum Silver Tablet] Omeprazole 40 mg PO BID 08/02/21 08/19/21 07/29/21 History hydrALAZINE [Apresoline TAB] 25 mg PO QDAY 08/02/21 08/19/21 07/29/21 History Apixaban [Eliquis] 0 mg PO . DIR #88 tablet 08/04/21 08/19/21 Unknown Rx Meclizine [Antivert] 12.5 mg PO Q8H PRN #30 tablet 08/04/21 08/19/21 Unknown Rx Ciprofloxacin HCl 500 mg PO BID #20 tablet 08/19/21 Unknown Rx Phenazopyridine [Pyridium] 200 mg PO BID #6 tab 08/19/21 Unknown Rx Nitrofurantoin [place]/M-Cryst 100 mg PO Q12HR #14 capsule 09/17/21 Unknown Rx [Macrobid CAP] polyethylene glycoL 3350 [Miralax 17 gm PO QDAY #30 packet 11/11/21 Unknown Rx 3350] ED Physical Exam - General Limitations: No Limitations General appearance: alert, in no apparent distress - Head Head exam: Present: atraumatic, normocephalic - Eye Eye exam: Present: normal appearance, EOMI. Absent: nystagmus - ENT ENT exam: Present: normal exam, normal orophraynx, mucous membranes moist, normal external ear exam - Neck Neck exam: Present: normal inspection, full ROM. Absent: tenderness, meningismus - Respiratory Respiratory exam: Present: normal lung sounds bilaterally. Absent: respiratory distress, wheezes, rales, rhonchi, stridor, decreased breath sounds - Cardiovascular Cardiovascular Exam: Present: regular rate, normal rhythm, normal heart sounds. Absent: bradycardia, tachycardia, irregular rhythm, systolic murmur, diastolic murmur, rubs, gallop - GI/Abdominal GI/Abdominal exam: Present: soft, hernia (There is a tender but reducible left- sided inguinal hernia). Absent: distended, tenderness, guarding, rebound, rigid, pulsatile mass - Rectal Rectal exam: Present: normal inspection, normal rectal tone, fecal impaction, other (Chaperoned by nurse She Gilbert). Absent: black stool, bloody stool - exam: Present: other (Reducible left-sided inguinal hernia) - Extremities Exam Extremities exam: Present: normal inspection, full ROM, other (2+ pulses noted in the bilateral upper and lower extremities. There is no palpable cord. negative Homans sign. Muscular compartments are soft. The pelvis is stable.). Absent: calf tenderness - Back Exam Back exam: Present: normal inspection, full ROM. Absent: tenderness, CVA tenderness (R), CVA tenderness (L), paraspinal tenderness, vertebral tenderness - Neurological Exam Neurological exam: Present: alert, oriented X3, other (There is no facial droop. The tongue is midline. 5 out of 5 strength in 4 extremities. Sensation intact to light touch in 4 extremities) - Psychiatric Psychiatric exam: Present: anxious - Skin Skin exam: Present: warm, dry, intact, normal color. Absent: rash ED Course Vital Signs 11/11/21 11/11/21 11/11/21 01:18 01:20 01:26 Temperature 98.4 F Pulse Rate 90 Respiratory 20 20 Rate Blood Pressure 135/52 [Left] O2 Sat by Pulse 100 100 Oximetry O2 Sat by Pulse 99 Oximetry [ Digit-Finger] - Reevaluation(s) Reevaluation #1: 11/11/21 01:22 Differential diagnosis, include but not limited to: Recurrent left-sided inguinal hernia, constipation, fecal impaction Assessment and plan: 81-year-old gentleman, with a primary complaint of constipation and recurrent left-sided inguinal hernia. The hernia is reduced by myself with 1 attempt. Please see procedure note. Patient endorses immediate improvement in symptoms. He also received a soapsuds enema, and fecal disimpaction by myself, patient again provided consent for this. He endorses significant improvement in symptoms. Abdomen is soft and benign, and the patient is passing gas and defecating. Urine sample pending, patient drinking water at this time. We will discharge with MiraLAX, diet lifestyle modifications, he may continue current outpatient medications, and follow-up with an outpatient primary care doctor or general surgeon. Return precautions reviewed. All questions answered. Patient endorses understanding 11/11/21 01:48 Patient is able to urinate. He denies dysuria and testicular pain. He feels much improved. He is ready for discharge. Discussed natural history of constipation, diagnostic modifications, and need to follow-up. Patient articulates understanding - Procedure Description Procedures done: Patient provided verbal consent for left-sided inguinal hernia reduction. Patient placed on director of cardiac rehabilitation, and receives 4 mg of morphine, and 4 mg of Zofran. He is laid in the supine position, and with gentle direct pressure, applied by myself, to the left inguinal hernia, hernia is reduced, with 1 attempt, the patient endorses immediate relief of symptoms. He tolerated this procedure well, and without significant complication - EJ/Peripheral Line Arm R Time Out Performed: Yes Indications: other (Placed IV to expedite therapy) Skin Cleansed in Sterile Fashion: Yes Size: 20 Dressing Placed: Tegaderm Patient Tolerated Procedure: well - Pulse Oximetry Interpretation Digit-Finger Initial Pulse Oximetry Readin O2 Sat by Pulse Oximetry: 99 Actions Taken: none - Rectal Disimpaction Consent Obtained: verbal consent, emergent situation Indication: fecal impaction Procedural Sedation: No Sedation/Analgesia: opioids Technique: manual disimpaction with (In conjunction with soapsuds enema) Result: significant stool output Complications: none Patient Tolerated Procedure: well ED Medical Decision Making - Lab Data Vital Signs 11/11/21 11/11/21 11/11/21 01:18 01:20 01:25 Temperature 98.4 F Pulse Rate 90 Respiratory 20 20 Rate Blood Pressure 135/52 [Left] O2 Sat by Pulse 100 100 Oximetry O2 Sat by Pulse 99 Oximetry [ Digit-Finger] - Medical Decision Making Please continue current outpatient medications. Please drink 4 to 5 cups of water per day, and consume plenty of fiber, vegetables, and lean protein. Take the MiraLAX medication as directed. Constipation symptoms typically take a few weeks to a few months to improve. Best treatment for constipation is diet and lifestyle modifications as directed. Follow-up with a primary care doctor within the next month. Follow-up with a general surgeon, such as Dr. Meek, for recurrent left-sided inguinal hernia within the next week. Please avoid straining, pushing, extreme pressure with defecation and urination. Please return to the emergency room right away with new pain, worsened pain, migration of pain, projectile vomiting, change in mental status, confusion, inability tolerate liquid feeds, new, worsened or different symptoms not present on the initial emergency room evaluation Critical care attestation.: If time is entered above; I have spent that time in minutes in the direct care of this critically ill patient, excluding procedure time. ED Disposition Clinical Impression: Fecal impaction, Constipation, Inguinal hernia Disposition: HOME / SELF CARE / HOMELESS Is pt being admited?: No Does the pt Need Aspirin: No Condition: Good Instructions: Hernia, Adult, Constipation, Adult Prescriptions: polyethylene glycoL 3350 [Miralax 3350] 17 gm PO QDAY #30 packet Referrals: BARON FLORES MD [Primary Care Provider] - 3-5 Days FREDRICK MEEK MD [Staff Physician] - 3-5 Days
[2021-11-11 01:19] VITALS: BP 135/52
== END 2021-11-11 07:57 | disposition home or self-care (01) ==
LOC: ED 22:55
DX: K56.41 Fecal impaction (principal); K40.90 Unilateral inguinal hernia, without obstruction or gangrene, not specified as recurrent; I10 Essential (primary) hypertension; E11.9 Type 2 diabetes mellitus without complications; J45.909 Unspecified asthma, uncomplicated; Z88.8 Allergy status to other drugs, medicaments and biological substances; Z88.0 Allergy status to penicillin; Z91.041 Radiographic dye allergy status; Z88.5 Allergy status to narcotic agent
CPT/HCPCS: 96374; 96375; 99283; J2270; J2405